=== PATIENT | female | born 1945 | race Two or more races ===

== ENCOUNTER 2017-04-26 05:43 | Inpatient (IN) | payer MEDICARE, BC ==
[~2017-04-26] VITALS: Ht 167.6 cm; Wt 54.9 kg
[2017-04-26] MEDS ORDERED: TRANEXAMIC ACID 1,500 MG in IV NS 0.9% 50 ML IV ONE (07:00)
[2017-04-26 08:00] VITALS: BP 149/67
[2017-04-26] MEDS ORDERED: DIAZ5TAB4 PO (09:19)
[2017-04-26] MEDS ORDERED: LEVO5TAB13 PO (09:19)
[2017-04-26] MEDS ORDERED: CLON0.1T PO (09:19)
[2017-04-26] MEDS ORDERED: TRAM50TA2 PO (09:19)
[2017-04-26] MEDS ORDERED: LEVO150T8 PO (09:19)
[2017-04-26] MEDS ORDERED: ANESTHESIA TRAY IN PYXIS 1 EA TRAY MC ONE (09:48)
[2017-04-26] MEDS ORDERED: [UNRECOGNIZED DRUG - CODE] PO (09:48)
[2017-04-26] MEDS ORDERED: DOCU50LI PO (09:48)
[2017-04-26] MEDS ORDERED: KETOROLAC TROMETHAMINE INJ 30 MG/ML VIAL ONE ×2 (09:49→14:30)
[2017-04-26] MEDS ORDERED: MORPHINE SULFATE INJ 4 MG/ML DISP.SYRIN ONE (09:49)
[2017-04-26] MEDS ORDERED: BUPIVACAINE 0.5 % PF 150 MG/30 ML VIAL ONE (09:49)
[2017-04-26] MEDS ORDERED: BACITRACIN 50000 UNITS/VIAL ONE (09:49)
[2017-04-26 09:51] VITALS: BP 149/67
[2017-04-26] MEDS ORDERED: oxyCODONE HCL SR 10MG TAB.SR.12H PO ONE (09:52)
[2017-04-26] MEDS ORDERED: CELECOXIB 100 MG CAPSULE PO ONE (10:00)
[2017-04-26] MEDS ORDERED: METOCLOPRAMIDE HCL 10 MG/2 ML VIAL IV ONE (10:00)
[2017-04-26] MEDS ORDERED: FENTANYL PF 100MCG/2ML AMPUL ONE ×2 (10:16→11:46)
[2017-04-26] MEDS ORDERED: ROCURONIUM BROMIDE 50 MG/5 ML ONE (10:16)
[2017-04-26] MEDS ORDERED: MIDAZOLAM HCL 2 MG/2ML VIAL ONE (10:16)
[2017-04-26] MEDS ORDERED: CLINDAMYCIN 900 MG/6 ML VIAL ONE (10:17)
[2017-04-26] MEDS ORDERED: ONDANSETRON HCL/PF 4 MG/2 ML VIAL ONE (14:03)
[2017-04-26] MEDS ORDERED: METOCLOPRAMIDE HCL 10 MG/2 ML VIAL ONE (14:24)
[2017-04-26] MEDS ORDERED: IV D5/0.45 NACL 1,000 ML IV PRN (15:00)
[2017-04-26] MEDS ORDERED: ASPIRIN 600 MG/SUPP.RECT RC ONE (15:00)
[2017-04-26] MEDS ORDERED: ZOLPIDEM TARTRATE 5 MG TABLET PO PRN (15:30)
[2017-04-26] MEDS ORDERED: LEVOFLOXACIN 500 MG /D5W 100ML 500 MG in PREMIX 1 EA IV ONE (15:30)
--- NOTE | 2017-04-26 19:30 | NUR ---
MS/RN NOTES: RECEIVED PT. IN BED A/O X 4 W/ A FRIEND AT BEDSIDE. DENIES ANY C/O CHEST PAIN OR SOB AT PRESENT. W/ IVF GOING TO LT. HAND PATENT AND INTACT W/ NO S/S OF INFECTION/INFILTRATION NOTED. W/ BRACT TO LEFT KNEE INTACT. CALL LIGHT W/ REACH. SAFETY PRECAUTION MENTIONED.
[2017-04-26 20:00] VITALS: BP 103/51
[2017-04-26] MEDS: CLINDAMYCIN 600 MG in IV D5W 50 ML IV SCH (20:00)
--- NOTE | 2017-04-26 21:03 | NUR ---
Patient was upset this am, at beginning of dayshift. She c/o that she is supposed to have IV started. OR nurse Kilo Bazan had started IV in L wrist with 20 g and then gave patient am meds. Oxycodone and preop meds was given by him with sips of water. No call was done by OR about giving am meds to patient, but the 2 OR nurse came and transferred patient via gurney after meds given. Patient returned about 1500 and this nurse received report from OR nurse stating patient has allergy to PCN, and so Ancef cannot be given. Waiting for Inpatient Pharmacy to bring meds to give to patient. Then no IV pump in room and [facility] needed to bring pump for antibiotics. Report given to Hawa FRANCIS to assume care of patient. This nurse still in hospital at 2100. IV D5 1/2 NS hung and IVPB Clindamycin and Levaquin. Addendum: 04/26/17 at 2152 by FABY FONG RN Reglan also given, but the nurse Kilo didn't sign off in [employer]
[2017-04-27] MEDS: CLINDAMYCIN 600 MG in IV D5W 50 ML IV SCH ×2 (00:43→09:17)
[2017-04-27] MEDS: ONDANSETRON HCL/PF 4 MG/2 ML VIAL IV SCH ×2 (03:28→08:59)
[2017-04-27] MEDS: KETOROLAC TROMETHAMINE INJ 30 MG/ML VIAL IV PRN ×4 (03:28→21:40)
[2017-04-27 04:00] VITALS: BP 97/48
[2017-04-27] MEDS ORDERED: MAGNESIUM HYDROXIDE 30 ML UDC PO PRN (04:00)
[2017-04-27] MEDS ORDERED: BISACODYL SUPP (10 MG) 10 MG/SUPP.RECT SUPP.RECT RC PRN (04:00)
[2017-04-27] MEDS ORDERED: ACETAMINOPHEN 650 MG/20.3 ML UDC PO PRN (04:00)
--- NOTE | 2017-04-27 06:58 | NUR ---
RN/MS NOTES: PT. IS IN BED RESTING W/ NO C/O CHEST PAIN OR SOB AT PRESENT. NO ACUTE CHANGES NOTED DURING THIS SHIFT. REPORT GIVEN TO AM NURSE FOR TAWANNA.
[2017-04-27 07:51] LABS: BASOPHILS % (AUTO) 0.1 % (0.0-2.0); EOSINOPHILS # (AUTO) 0.1 /CMM (0.0-0.7); EOSINOPHILS % (AUTO) 0.7 % (0.0-6.0); HEMATOCRIT 31 % (33-45); HEMOGLOBIN 10.5 g/dL (11.5-14.8); LYMPHOCYTES # (AUTO) 1.4 /CMM (0.8-4.8); LYMPHOCYTES % (AUTO) 10.1 % (20.0-44.0); MEAN CORPUSCULAR HEMOGLOBIN 30 PG (26.0-33.0); MEAN CORPUSCULAR HGB CONC 34 g/dl (31.0-36.0); MEAN CORPUSCULAR VOLUME 90 fL (82-100); MONOCYTES # (AUTO) 1.2 /CMM (0.1-1.30); MONOCYTES % (AUTO) 8.6 % (2.0-12.0); NEUTROPHILS # (AUTO) 11.5 /CMM (1.8-8.9); NEUTROPHILS % (AUTO) 80.5 % (43.0-81.0); PLATELET COUNT (AUTO) 221 /CMM (150-450); RDW COEFFICIENT OF VARIATION 13.7 (11.5-15.0); RED BLOOD CELL COUNT(AUTO) 3.45 MIL/uL (4.0-5.2); WHITE BLOOD COUNT (AUTO) 14.2 K/uL (4.3-11.0)
[2017-04-27 07:53] LABS: CALCIUM, SERUM 8.4 mg/dL (8.5-10.1); CARBON DIOXIDE 22 mmol/L (21-32); CHLORIDE 105 mmol/L (98-107); CREATININE 1.1 mg/dL (0.6-1.3); GLUCOSE 148 mg/dL (74-106); MAGNESIUM 1.9 mg/dL (1.8-2.4); POTASSIUM 3.9 mmol/L (3.5-5.1); SODIUM SERUM 139 mmol/L (136-145); UREA NITROGEN, BLOOD 17 mg/dL (7-18)
[2017-04-27 08:00] VITALS: BP 109/51
[2017-04-27] MEDS: ASPIRIN 325 MG TABLET PO SCH ×2 (08:58→17:59)
[2017-04-27] MEDS ORDERED: CELECOXIB 100 MG CAPSULE PO SCH (09:00)
[2017-04-27] MEDS ORDERED: Medication Not On Formulary EA (Levocetirizine Dihydrochloride 5 MG) PO PRN (13:30)
[2017-04-27] MEDS ORDERED: ONDANSETRON HCL/PF 4 MG/2 ML VIAL IV SCH (13:30)
[2017-04-27] MEDS ORDERED: diphenhydrAMINE HCL 50 MG/ML VIAL IV PRN (13:30)
[2017-04-27] MEDS ORDERED: HYDROCODONE/APAP 10/325MG 1 EA TABLET PO PRN (13:30)
[2017-04-27] MEDS ORDERED: HYDROCODONE/APAP 5/325MG 1 EACH TABLET PO PRN (13:30)
[2017-04-27] MEDS ORDERED: HYDROMORPHONE INJ 0.5 MG/0.5 ML SYRINGE IV PRN (14:00)
[2017-04-27] MEDS: CLONIDINE HCL 0.1 MG TABLET PO SCH ×2 (16:42→20:59)
[2017-04-27] MEDS: TRAMADOL HCL 50 MG TABLET PO PRN (16:45)
[2017-04-27] MEDS: LEVOCETIRIZINE 5 MG PO PRN (17:59)
--- NOTE | 2017-04-27 19:21 | NUR ---
Assumed care of patient from 0700 to 1930. Medicated for pain with Dilaudid, Toradol and Ultram. IV SL'd. Flushed and patent. VSS. Ambulated with PT x 1. Left leg in CPM for about less than 1 hr. She was medicated prior, but she refused CPM. Knee Immobilizer on while patient in bed. Castañeda drained 1000 ml. Home meds taken to inpt pharmacy. She request allergy pill- Levocetirizine. Report given to Verenice FRANCIS for overnight houseperson.
[2017-04-27 20:00] VITALS: BP 154/63
[2017-04-27] MEDS: DOCUSATE SODIUM 100 MG CAPSULE PO PRN (20:59)
--- NOTE | 2017-04-27 21:02 | NUR ---
MS1/RN BP 154/63, PATIENT IS CONCERNED AND ASKED FOR HER BP MED, CLONIDINE. CLONIDINE 0.1 MG PO WAS GIVEN ORDERED.
--- NOTE | 2017-04-27 21:54 | NUR ---
MS1/RN PATIENT ASKED FOR NAUSEA MEDICATION, NO ACTIVE ORDER NOTED. CALLED [facility], DR. LARA IS UTILITY WORKER DRIVER. LEFT MESSAGE.
[2017-04-27] MEDS: DOCUSATE SODIUM LIQ 100 MG/10 ML UDC PO SCH (22:00)
[2017-04-27] MEDS ORDERED: METHYLCELLULOSE 500 MG PO SCH (22:00)
--- NOTE | 2017-04-27 22:00 | NUR ---
MS1/RN COLACE 240 MG LIQUID NOT GIVEN MED WAS NOT AVAILABLE AT THE TIME PATIENT REQUESTED FOR HER HS MEDS. COLACE 100 MG SOFT GEL WAS GIVEN INSTEAD.
--- NOTE | 2017-04-27 22:10 | NUR ---
MS1/RN DR. LARA CALLED BACK WITH ORDERS RECEIVED. ORDERS CARRIED OUT.
--- NOTE | 2017-04-27 22:49 | NUR ---
MS1/RN PATIENT IS SLEEPING AT THIS TIME, EASILY AROUSABLE, APPEAR COMFORTABLE, NO SIGNS OF DISTRESS NOTED, CALL LIGHT IN REACH. WILL CONTINUE TO MONITOR.
[2017-04-27] MEDS: ONDANSETRON HCL/PF 4 MG/2 ML VIAL IV PRN (23:11)
--- NOTE | 2017-04-28 | NUR ---
MS1/RN PATIENT IS SLEEPING AFTER ZOFRAN IV WAS GIVEN FOR NAUSEA, PATIENT APPEARS COMFORTABLE, NO DISTRESS NOTED, WILL CONTINUE TO MONITOR.
[2017-04-28] MEDS: DIAZEPAM 5 MG TABLET PO PRN ×2 (02:26→19:28)
--- NOTE | 2017-04-28 02:34 | NUR ---
MS1/RN PATIENT IS AWAKE AND VERY ANXIOUS AND ASKING FOR HER VALIUM. VALIUM 5 MG PO WAS GIVEN ORDERED. WILL MONITOR.
[2017-04-28] MEDS: TRAMADOL HCL 50 MG TABLET PO PRN ×3 (02:50→17:36)
--- NOTE | 2017-04-28 03:51 | NUR ---
MS1/RN BP 178/70, PATIENT IS ASYMPTOMATIC, NO BP MED PRN ORDERED, CALLED [facility] LEFT MESSAGE.
--- NOTE | 2017-04-28 03:59 | NUR ---
MS1/RN JANE GUZMAN CALLED BACK AND ORDERED TO GIVE THE CLONIDINE DOSE FOR 9:00, NOW.
[2017-04-28 04:00] VITALS: BP 178/70
[2017-04-28] MEDS ORDERED: CLONIDINE HCL 0.1 MG TABLET PO SCH (04:00)
[2017-04-28] MEDS: CLONIDINE HCL 0.1 MG TABLET PO SCH ×3 (04:07→20:41)
[2017-04-28] MEDS: LEVOTHYROXINE SODIUM 75 MCG TABLET PO SCH (06:54)
[2017-04-28] MEDS: ONDANSETRON HCL/PF 4 MG/2 ML VIAL IV PRN ×2 (06:59→19:29)
[2017-04-28] MEDS: KETOROLAC TROMETHAMINE INJ 30 MG/ML VIAL IV PRN ×3 (07:06→21:43)
[2017-04-28 07:13] LABS: BASOPHILS % (AUTO) 0.2 % (0.0-2.0); EOSINOPHILS # (AUTO) 0.1 /CMM (0.0-0.7); EOSINOPHILS % (AUTO) 1.4 % (0.0-6.0); HEMATOCRIT 31 % (33-45); HEMOGLOBIN 10.3 g/dL (11.5-14.8); LYMPHOCYTES % (AUTO) 12.1 % (20.0-44.0); MEAN CORPUSCULAR HEMOGLOBIN 31 PG (26.0-33.0); MEAN CORPUSCULAR HGB CONC 34 g/dl (31.0-36.0); MEAN CORPUSCULAR VOLUME 90 fL (82-100); MONOCYTES # (AUTO) 1.2 /CMM (0.1-1.30); MONOCYTES % (AUTO) 14.7 % (2.0-12.0); NEUTROPHILS % (AUTO) 71.6 % (43.0-81.0); PLATELET COUNT (AUTO) 230 /CMM (150-450); RDW COEFFICIENT OF VARIATION 13.9 (11.5-15.0); RED BLOOD CELL COUNT(AUTO) 3.39 MIL/uL (4.0-5.2); WHITE BLOOD COUNT (AUTO) 8.4 K/uL (4.3-11.0)
[2017-04-28 07:27] LABS: CALCIUM, SERUM 8.5 mg/dL (8.5-10.1); CARBON DIOXIDE 28 mmol/L (21-32); CHLORIDE 108 mmol/L (98-107); CREATININE 0.9 mg/dL (0.6-1.3); GLUCOSE 110 mg/dL (74-106); PHOSPHORUS 3.4 mg/dL (2.5-4.9); POTASSIUM 4.1 mmol/L (3.5-5.1); SODIUM SERUM 143 mmol/L (136-145); UREA NITROGEN, BLOOD 14 mg/dL (7-18)
--- NOTE | 2017-04-28 07:33 | NUR ---
MS1/RN AWAKE, COMFORTABLE, NO DISTRESS NOTED, PATIENT REFUSED TURNING THE WHOLE SHIFT, EDUCATED ON IMPORTANCE OF TURNING, VERBALIZED UNDERSTANDING BUT STILL REFUSED. ALL NEEDS ATTENDED AT THIS TIME. ENDORSED.
[2017-04-28 07:40] LABS: THYROID STIMULATING HORMONE 0.192 uIU/mL (0.358-3.74)
[2017-04-28 08:00] VITALS: BP 161/66
--- NOTE | 2017-04-28 08:00 | NUR ---
RN NOTES RECEIVED PATIENT IN THE BED A/O X4, NO ACUTE RESPIRATORY DISTRESS, PATIENT V/S TAKEN STABLE, ENCOURAGED TO EXPRESS FEELINGS AND CONCERNS, IV LINE ON LEFT FOREARM INTACT,LEFT KNEE BRACE IMMOBILIZED ON,DRESSING INTACT, F/C DRAIN LIGHT YELLOW OUTPUT, NEEDS ATTENDED AND ANTICIPATED, CALL LIGHT WITHIN TO REACH, SAFETY PRECAUTION MAINTAINED ALL THE TIME. CONTINUED MONITORING.
[2017-04-28 08:59] LABS: IRON, SERUM 10 ug/dl (50-175); TOTAL IRON BINDING CAPACITY 210 ug/dl (250-450)
[2017-04-28] MEDS: ASPIRIN 325 MG TABLET PO SCH ×2 (09:55→17:26)
--- NOTE | 2017-04-28 10:00 | NUR ---
RN NOTES REMOVED BLOOD CATHETER PRESCRIBED OUTPUT WAS 500 ML, ENCOURAGED PATIENT INCREASE FLUID INTAKE, ASSIST PATIENT TURN AND REPOSITION, CALL LIGHT WITHIN TO REACH, CONTINUED MONITORING.
--- NOTE | 2017-04-28 10:09 | NUR ---
RN NOTES 'ADMINISTERED ULTRAM 50 MG PO PRN FOR LEFT KNEE PAIN 06/01, PER PATIENT REQUEST, V/S TAKEN BP -161/66, P-69, CALL LIGHT WITHIN TO REACH, CONTINUED MONITORING.
[2017-04-28] MEDS: VENLAFAXINE 37.5 MG TABLET PO SCH (11:43)
--- NOTE | 2017-04-28 12:38 | NUR ---
RN NOTES ADMINISTERED TORADOL 30 MG/ML IV PUSH FOR PAIN 10/01, PER PATIENT REQUEST, V/S TAKEN BP -154/75, P-70, CALL LIGHT WITHIN TO REACH, SAFETY PRECAUTION MAINTAINED ALL THE TIME.
--- NOTE | 2017-04-28 14:22 | NUR ---
RN NOTES MEDICATION WERE ADMINISTERED FOR PAIN EFFECTIVE, PATIENT RESTING, NO ACUTE DISTRESS, CALL LIGHT WITHIN TO REACH, CONTINUED MONITORING.
[2017-04-28 16:00] VITALS: BP 151/67
--- NOTE | 2017-04-28 17:36 | NUR ---
RN NOTES ADMINISTERED ULTRAM 50 MG PO PRN FOR LEFT KNEE PAIN 07/02 PER PATIENT REQUEST V/S TAKEN BP-151/67, P-65, CALL LIGHT WITHIN TO REACH, DAUGHTER NEXT TO THE BED, CONTINUED MONITORING. ENCOURAGED TO INCREASE FLUID INTAKE.
--- NOTE | 2017-04-28 18:39 | NUR ---
RN NOTES PATIENT LYING IN THE BED, V/S STABLE, NO C/O PAIN AT THIS TIME, MEDICATION WERE ADMINISTERED FOR PAIN EFFECTIVE, CALL LIGHT WITHIN TO REACH, DAUGHTER NEXT TO THE BED. CONTINUED MONITORING. ENDORSED ONCOMING NURSE FOR TAWANNA.
[2017-04-28 20:00] VITALS: BP 154/73
--- NOTE | 2017-04-28 21:00 | NUR ---
RN NOTE PATIENT COMPLAINS OF PAIN IN LEFT KNEE 10/01, RECEIVED AN ORDER FOR TORADOL 30 MG IV Q 6 HOURS PRN, CALLED [facility] SPOKE WITH WILTON, SHE WILL VERIFY WITH PHARMACIST
--- NOTE | 2017-04-28 21:15 | NUR ---
RN NOTE PATIENT WILL BE UNDER NURSE TTIO NEWMAN, PROVIDED REPORT TO HER
--- NOTE | 2017-04-28 21:28 | NUR ---
RN NOTES RECEIVED PATIENT IN THE BED A/O X4, NO ACUTE RESPIRATORY DISTRESS, IV LINE ON LEFT FOREARM INTACT,LEFT KNEE BRACE IMMOBILIZED ON,DRESSING INTACT, ABLE TO URINATE, PATIENT IS ANXIOUS, ADMINISTERED MEDICATION AND ITS EFFECTIVE, CALL LIGHT WITHIN TO REACH, SAFETY PRECAUTION MAINTAINED ALL THE TIME, ALL BELONGINGS WITHIN REACH, ENCOURAGED TO USE CALL LIGHT, SIDE RAILS UP X 2, BED ALARM ACTIVATED FOR SAFETY, WILL CONTINUE TO MONITOR PATIENT
--- NOTE | 2017-04-28 21:30 | NUR ---
MS RN NOTE RECEIVED PATIENT FROM TITO TRINIDAD. PATIENT STABLE IN BED. STATES THAT SHE IS WAITING FOR TORADOL FOR 8/10 PAIN TO KNEE. IV SITE NOTED TO BE INFILTRATED. WILL PLACE NEW IV SHORTLY.
[2017-04-28] MEDS: DOCUSATE SODIUM LIQ 100 MG/10 ML UDC PO SCH (21:43)
--- NOTE | 2017-04-28 21:45 | NUR ---
MS RN NOTE NEW IV PLACED TO LEFT FOREARM #22. PATIENT TOLERATED WELL. ADMINISTERED TORADOL 30MG IVP. PATIENT IS CURRENTLY REFUSING SCD'S. EXPLAINED ALL BENEFITS TO PATIENT. CONTINUES TO REFUSE. WILL CONTINUE TO MONITOR.
[2017-04-29] VITALS: BP 144/70
[2017-04-29 04:00] VITALS: BP 147/69
[2017-04-29] MEDS: LEVOTHYROXINE SODIUM 75 MCG TABLET PO SCH (05:12)
[2017-04-29] MEDS: CLONIDINE HCL 0.1 MG TABLET PO SCH ×3 (05:12→21:20)
--- NOTE | 2017-04-29 06:04 | NUR ---
MS RN NOTE PATIENT STABLE. ALL NEEDS MET AND ATTENDED TO. WILL ENDORSE TO DAY SHIFT FOR TAWANNA.
[2017-04-29 06:41] LABS: BASOPHILS % (AUTO) 0.2 % (0.0-2.0); EOSINOPHILS # (AUTO) 0.3 /CMM (0.0-0.7); EOSINOPHILS % (AUTO) 3.7 % (0.0-6.0); HEMATOCRIT 27 % (33-45); HEMOGLOBIN 8.9 g/dL (11.5-14.8); LYMPHOCYTES # (AUTO) 1.3 /CMM (0.8-4.8); LYMPHOCYTES % (AUTO) 16.8 % (20.0-44.0); MEAN CORPUSCULAR HEMOGLOBIN 29 PG (26.0-33.0); MEAN CORPUSCULAR HGB CONC 33 g/dl (31.0-36.0); MEAN CORPUSCULAR VOLUME 89 fL (82-100); MONOCYTES # (AUTO) 1.1 /CMM (0.1-1.30); MONOCYTES % (AUTO) 15.2 % (2.0-12.0); NEUTROPHILS # (AUTO) 4.8 /CMM (1.8-8.9); NEUTROPHILS % (AUTO) 64.1 % (43.0-81.0); PLATELET COUNT (AUTO) 185 /CMM (150-450); RDW COEFFICIENT OF VARIATION 14.2 (11.5-15.0); RED BLOOD CELL COUNT(AUTO) 3.03 MIL/uL (4.0-5.2); WHITE BLOOD COUNT (AUTO) 7.5 K/uL (4.3-11.0)
[2017-04-29 06:50] LABS: CALCIUM, SERUM 8.5 mg/dL (8.5-10.1); CARBON DIOXIDE 24 mmol/L (21-32); CHLORIDE 105 mmol/L (98-107); CREATININE 0.9 mg/dL (0.6-1.3); GLUCOSE 110 mg/dL (74-106); PHOSPHORUS 3.7 mg/dL (2.5-4.9); POTASSIUM 4.1 mmol/L (3.5-5.1); SODIUM SERUM 140 mmol/L (136-145); UREA NITROGEN, BLOOD 16 mg/dL (7-18)
[2017-04-29 07:18] LABS: EOSINOPHILS % (MANUAL) 5 % (0-4); LYMPHOCYTES % (MANUAL) 10 % (16-48); MONOCYTES % (MANUAL) 16 % (0-11.0); NEUTROPHILS % (MANUAL) 69 (42-76)
--- NOTE | 2017-04-29 07:42 | NUR ---
MS/RN OPENING NOTE PATIENT IN BED IN STABLE CONDITION. A/O X 4. NO SIGNS OF ACUTE DISTRESS. NO COMPLAIN OF PAIN OR DISCOMFORT. ALL NEEDS ATTENDED TO. CALL LIGHT WITHIN REACH. WILL CONTINUE TO MONITOR TO ENSURE SAFETY.
[2017-04-29 08:00] VITALS: BP 115/61
[2017-04-29 08:06] VITALS: BP 146/70
[2017-04-29] MEDS: ASPIRIN 325 MG TABLET PO SCH ×2 (08:49→16:54)
[2017-04-29] MEDS: VENLAFAXINE 37.5 MG TABLET PO SCH (08:49)
[2017-04-29] MEDS: KETOROLAC TROMETHAMINE INJ 30 MG/ML VIAL IV PRN ×2 (08:49→15:14)
[2017-04-29] MEDS: ONDANSETRON HCL/PF 4 MG/2 ML VIAL IV PRN ×2 (08:49→15:14)
[2017-04-29 16:00] VITALS: BP 146/54
--- NOTE | 2017-04-29 18:07 | NUR ---
MS/RN CLOSING NOTE PATIENT IN BED IN STABLE CONDITION. A/O X 3. NO SIGNS OF ACUTE DISTRESS. NO COMPLAIN OF PAIN OR DISCOMFORT. ALL NEEDS ATTENDED TO. CALL LIGHT WITHIN REACH. WILL ENDORSE TO NEXT SHIFT FOR CONTINUITY OF CARE.
--- NOTE | 2017-04-29 19:25 | NUR ---
MS/RN NOTES RECEIVED PT. LYING DOWN IN BED. AWAKE, ALERT AND ORIENTED X4. BREATHING EVEN AND UNLABORED ON ROOM AIR. NO COMPLAINTS OF SOB, RESPIRATORY DISTRESS OR PAIN NOTED AT THIS TIME. PT. WITH LEFT FOREARM 22 GAUGE IV SALINE LOCK PRESENT, PATENT AND INTACT. BED LOCKED AND IN LOWEST POSITION, SIDE RAILS UP X2, BED ALARM ON, CALL LIGHT WITHIN REACH, WILL CONTINUE TO MONITOR.
[2017-04-29 20:00] VITALS: BP 138/53
[2017-04-29] MEDS: DOCUSATE SODIUM LIQ 100 MG/10 ML UDC PO SCH (21:20)
[2017-04-30] MEDS: KETOROLAC TROMETHAMINE INJ 30 MG/ML VIAL IV PRN ×2 (02:16→11:00)
[2017-04-30] MEDS: ONDANSETRON HCL/PF 4 MG/2 ML VIAL IV PRN ×2 (02:17→11:00)
[2017-04-30] MEDS: CLONIDINE HCL 0.1 MG TABLET PO SCH ×2 (05:00→13:11)
--- NOTE | 2017-04-30 06:36 | NUR ---
MS/RN NOTES PT. IS LYING IN BED RESTING. BREATHING EVEN AND UNLABORED ON ROOM AIR. NO COMPLAINTS OF SOB, RESPIRATORY DISTRESS OR PAIN NOTED AT THIS TIME. PT. WITH LEFT FOREARM 22 GAUGE IV SALINE LOCK PRESENT, PATENT AND INTACT. ALL PT. NEEDS MET. ALL DUE MEDICATIONS GIVEN. BED LOCKED AND IN LOWEST POSITION, SIDE RAILS UP X2, BED ALARM ON, CALL LIGHT WITHIN REACH, WILL ENDORSE TO DAYSHIFT NURSE FOR CONTINUITY OF CARE.
--- NOTE | 2017-04-30 07:30 | NUR ---
RN MED-SURG NOTE: RECEIVED PATIENT IN BED, AWAKE, AND ABLE TO MAKE NEEDS KNOWN. RESPIRATION EVEN AND UNLABORED. SATURATING WELL 96% IN RA. NOTED CALM AND LYING QUIETLY IN BED. (L) LEG WAS NOTED WITH REGIS WRAP AND IMMOBILIZER IN PLACED. DRESSING INTACT AND CLEAN. DENIED PAIN AT THIS TIME. CALL LIGHT WITHIN REACH. NEEDS ANTICIPATED. BED ALARM AND LOCKED AT ALL TIMES.
[2017-04-30 08:00] VITALS: BP 135/66
[2017-04-30] MEDS: LEVOTHYROXINE SODIUM 75 MCG TABLET PO SCH (08:29)
[2017-04-30] MEDS: VENLAFAXINE 37.5 MG TABLET PO SCH (08:29)
[2017-04-30] MEDS: ASPIRIN 325 MG TABLET PO SCH ×2 (08:30→16:32)
[2017-04-30 13:11] VITALS: BP 156/63
[2017-04-30] MEDS: DIAZEPAM 5 MG TABLET PO PRN (14:36)
[2017-04-30] MEDS: LEVOCETIRIZINE 5 MG PO PRN (15:07)
[2017-04-30] MEDS ORDERED: DOCU-141 PO (15:45)
[2017-04-30] MEDS ORDERED: BISA10SU8 RC (15:45)
[2017-04-30] MEDS ORDERED: ASPI-992 PO (15:45)
--- NOTE | 2017-04-30 16:30 | NUR ---
TITO MED-SURG NOTE: CALLED AND SPOKE WITH TITO IBARRA FROM [facility]. INFORMED HIM OF THE PATIENT'S PERTINENT INFORMATION, INCLUDING THE (L) LEG WITH REGIS WRAP AND IMMOBILIZER WAS IN PLACED. HE WAS ALSO INFORMED OF THE PATIENT'S DISCHARGE INSTRUCTIONS INCLUDING THE FOLLOW-UP WITH ORTHOPEDIC SURGEON INCLUDING HER DRESSING CHANGE. HE WAS ALSO AWARE THAT PATIENT IS GOING TO BE DISCHARGE WITH HER OWN MEDICATIONS SEALED IN A PLASTIC BAG WITH LABELS. TITO IBARRA MADE AWARE THAT ETA WILL BE @1700.
--- NOTE | 2017-04-30 16:36 | NUR ---
RN MED-SURG NOTE: PATIENT WAS GIVEN DISCHARGE INSTRUCTIONS REGARDING HER FOLLOW-UP WITH HER PCP, CONTINUE W/ PT AND FOLLOW-UP APPOINTMENT WITH ORTHOPEDIC SURGEON. PATIENT WAS GIVEN INSTRUCTIONS RE: INFLUENZA/PNA VACCINE, BUT SHE STRONGLY REFUSED IT. (L) FA IV LINE WAS REMOVED AND SECURED WITH GAUZE AND TAPE. TOLERATED IT WELL. PATIENT WAS AWARE THAT HER HOME MEDICATIONS WILL BE GIVEN ONCE SHE GETS PICKED UP BY THE shipmaster. PATIENT VERBALIZED A FULL UNDERSTANDING OF ALL HER DISCHARGE INSTRUCTIONS. SIGNED HER BELONGING LIST AND DISCHARGE INSTRUCTIONS. COPIES WERE PLACED IN A FOLDER AND WILL BE GIVEN TO THE shipmaster UPON DISCHARGE.
[2017-04-30] MEDS: DOCUSATE SODIUM 100 MG CAPSULE PO PRN (17:42)
--- NOTE | 2017-04-30 18:05 | NUR ---
RN MED-SURGE NOTE: PATIENT WAS PICKED UP BY 2 traffic safety administrator OF [facility] TO [facility]. HANDED THEM THE FOLDER W/ PATIENT'S INFORMATION. PERTINENT INFORMATION WAS GIVEN TO THE traffic safety administrator. REPORT WAS GIVEN TO TITO IBARRA FOR CONTINUITY OF CARE. PT ON STABLE CONDITION. RESPIRATION EVEN AND UNLABORED. DENIED PAIN. ABLE TO AMBULATE TO THE [facility] WITH ASSISTANCE. RELEASED WITH HER ALL BELONGINGS. (L) LEG IMMOBILIZER REMAINED IN PLACE. PATIENT WAS THANKFUL UPON DISCHARGE.
== END 2017-04-30 18:05 | DRG 470 ==
LOC: DS 05:43 → MEDSG1 05:45
PROVIDERS: ADMIT Orthopaedic Surgery; ATTEND Orthopaedic Surgery
PROC: 0SRD0J9 Replacement of Left Knee Joint with Synthetic Substitute, Cemented, Open Approach (ICD-10-PCS; principal; 2017-04-26 10:25)
DX: M17.12 Unilateral primary osteoarthritis, left knee (principal); F13.20 Sedative, hypnotic or anxiolytic dependence, uncomplicated; D63.8 Anemia in other chronic diseases classified elsewhere; E03.9 Hypothyroidism, unspecified; E78.5 Hyperlipidemia, unspecified; I10 Essential (primary) hypertension; F41.9 Anxiety disorder, unspecified; K58.9 Irritable bowel syndrome, unspecified; Z96.651 Presence of right artificial knee joint; Z96.643 Presence of artificial hip joint, bilateral; Z98.890 Other specified postprocedural states; Z90.49 Acquired absence of other specified parts of digestive tract
CPT/HCPCS: 36415; 73560-TC; 80048-TC; 82746; 83540-TC; 83735-TC; 84100-TC; 84443-TC; 85025-TC; 87081-TC; 88305-TC; 88311-TC; 97110-TC; 97116-TC; 97530-TC; 97760-TC; A4216; J1200; J1885; J1956; J2250; J2270; J2405; J2765; J3010; J3490; J7060; J7120; Z7610

== ENCOUNTER 2018-05-10 10:06 | Inpatient (IN) | payer BC, MEDICARE, OTHER ==
[~2018-05-10] VITALS: Ht 160 cm; Wt 54.4 kg
[2018-05-10] VITALS (20 sets, daily range): BP systolic 82–152; BP diastolic 51–88
[~2018-05-10 10:06] MED LIST: ASPI-992 PO; BISA10SU8 RC; CLON0.1T PO; DIAZ5TAB4 PO; DOCU-141 PO; DOCU50LI PO; LEVO150T8 PO; LEVO5TAB13 PO; TRAM50TA2 PO; [UNRECOGNIZED DRUG - CODE] PO
--- NOTE | 2018-05-10 10:18 | NUR ---
PT C/O N/V/D SINCE LAST NIGHT, PT IS AAOX4, NOT IN RESPIRATORY DISTRESS, HOOKED TO MONITOR, NOTED PULSE RATE ELEVATION 130, KEPT RESTED AND COMFORTABLE. WILL CONTINUE TO MONITOR.
--- NOTE | 2018-05-10 10:27 | NUR ---
PT LABS DRAWNED AND SENT TO LAB.
--- NOTE | 2018-05-10 10:40 | NUR ---
PT SEEN AND EXAMINED BY DR. DODD.
[2018-05-10] MEDS ORDERED: ONDANSETRON HCL/PF 4 MG/2 ML VIAL ONE ×2 (10:46→11:28)
[2018-05-10 10:50] LABS: BASOPHILS # (AUTO) 0.1 /CMM (0.0-0.2); BASOPHILS % (AUTO) 0.2 % (0.0-2.0); HEMATOCRIT 48 % (33-45); HEMOGLOBIN 15.4 g/dL (11.5-14.8); LYMPHOCYTES # (AUTO) 0.8 /CMM (0.8-4.8); LYMPHOCYTES % (AUTO) 3.7 % (20.0-44.0); MEAN CORPUSCULAR HGB CONC 32 g/dl (31.0-36.0); MEAN CORPUSCULAR VOLUME 89 fL (82-100); MONOCYTES # (AUTO) 1.5 /CMM (0.1-1.30); MONOCYTES % (AUTO) 6.5 % (2.0-12.0); NEUTROPHILS # (AUTO) 19.9 /CMM (1.8-8.9); NEUTROPHILS % (AUTO) 89.6 % (43.0-81.0); PLATELET COUNT (AUTO) 398 /CMM (150-450); RED BLOOD CELL COUNT(AUTO) 5.35 MIL/uL (4.0-5.2); WHITE BLOOD COUNT (AUTO) 22.3 K/uL (4.3-11.0)
[2018-05-10] MEDS ORDERED: ONDANSETRON HCL/PF 4 MG/2 ML VIAL IVP ONE ×2 (11:00→12:00)
[2018-05-10] MEDS ORDERED: IV NS 0.9% 1,000 ML BAG IV ONE ×3 (11:00→13:30)
[2018-05-10 11:04] LABS: ALANINE AMINOTRANSFERASE 18 U/L (12-78); ALBUMIN 4.4 g/dL (3.4-5.0); ALKALINE PHOSPHATASE 127 U/L (46-116); ASPARTATE AMINOTRANSFERASE 27 U/L (15-37); BILIRUBIN,DIRECT 0.1 mg/dL (0.0-0.2); BILIRUBIN,TOTAL 0.7 mg/dL (0.2-1.0); CALCIUM, SERUM 10.3 mg/dL (8.5-10.1); CARBON DIOXIDE 23 mmol/L (21-32); CHLORIDE 105 mmol/L (98-107); GLUCOSE 208 mg/dL (74-106); LIPASE 41 U/L (73-393); SODIUM SERUM 142 mmol/L (136-145); TOTAL PROTEIN, SERUM 8.5 g/dL (6.4-8.2); UREA NITROGEN, BLOOD 19 mg/dL (7-18)
--- NOTE | 2018-05-10 11:06 | NUR ---
PT IS WHEELED TO CT SCAN VIA [facility].
[2018-05-10 12:03] LABS: APPEARANCE,URINE Slightly Cloudy (CLEAR); BILIRUBIN,URINE Negative (NEGATIVE); BLOOD, URINE Large Ery/uL (NEGATIVE); COLOR,URINE Yellow (YELLOW); KETONES,URINE 40 (NEGATIVE); LEUKOCYTE ESTERASE ,URINE Negative (NEGATIVE); NITRITE, URINE Negative (NEGATIVE); PH,URINE 5.5 (5.0-8.0); PROTEIN,URINE >=300 mg/dl (NEGATIVE); UGLUCOSE 500 MG/DL mg/dL (NEGATIVE); UROBILINOGEN,URINE 0.2 EU/dL (0.2)
[2018-05-10] MEDS ORDERED: METOCLOPRAMIDE HCL 10 MG/2 ML VIAL ONE (12:12)
[2018-05-10] MEDS ORDERED: BISA10SU8 RC (12:14)
[2018-05-10] MEDS ORDERED: ASPI-1169 PO (12:14)
[2018-05-10] MEDS ORDERED: DOCU-141 PO (12:14)
[2018-05-10] MEDS ORDERED: GABA-534 PO (12:15)
[2018-05-10 12:16] LABS: BACTERIA,URINE Few /HPF (None Seen); SQUAMOUS EPITHELIAL CELL,UR Few /HPF (None Seen); WBC,URINE 0-2 /HPF (0-3)
[2018-05-10] MEDS ORDERED: METOCLOPRAMIDE HCL 10 MG/2 ML VIAL IV ONE (12:30)
--- NOTE | 2018-05-10 12:38 | NUR ---
CALLED RT TO DO BLOOD GAS
--- NOTE | 2018-05-10 12:45 | NUR ---
CLINICALLS SENT TO THE FRONT
--- NOTE | 2018-05-10 12:48 | NUR ---
CALLED FOR ICU BED
[2018-05-10 13:05] LABS: ABG PCO2 46.3 mmHg (35.0-45.0); ABG PH 7.064 (7.350-7.450); ABG PO2 49.5 mmHg (75.0-100.0); AaDO2 472.3 mmHg; COHb 1.3 % (0.5-1.5); MetHb 0.2 % (0.0-1.5); SITE, ABG Right Radial; VENT MODE, BG NRB
--- NOTE | 2018-05-10 13:10 | NUR ---
RT AT BEDSIDE FOR ABG.
[2018-05-10] MEDS ORDERED: LEVOFLOXACIN 750 MG /D5W 150ML 150 ML IV ONE ×2 (13:12→13:30)
--- NOTE | 2018-05-10 13:22 | NUR ---
CALLED RT FOR MECH VENT SET UP AT BEDSIDE.
[2018-05-10] MEDS: SUCCINYLCHOLINE CHLORIDE 20 MG/ML VIAL IV ONE ×2 (13:25→13:46)
--- NOTE | 2018-05-10 13:25 | NUR ---
INTUBATION SET UP AT BEDSIDE, DR. DODD AWARE, ETOMIDATE 20MG AND SUCCINYLCHOLINE 100MG IVP GIVEN VERBAL ORDERED BY DR. DODD.
--- NOTE | 2018-05-10 13:26 | NUR ---
INTUBATION INITIATED, RT AT BEDSIDE, ET SIZE 7 AND 22 AT THE LIP,
[2018-05-10] MEDS ORDERED: ETOMIDATE 2 MG/ML VIAL IV ONE ×2 (13:30→18:55)
[2018-05-10] MEDS ORDERED: VANCOMYCIN 1 GM in IV D5W 250 ML IV ONE (13:30)
[2018-05-10] MEDS ORDERED: PROPOFOL 100 ML IV ONE (13:32)
[2018-05-10] MEDS ORDERED: PROPOFOL 100 ML ONE (13:33)
--- NOTE | 2018-05-10 13:40 | NUR ---
PROPOFOL STARTED AT 5MCG/HR DR. DODD AWARE AND TITRATE TO EFFECT.
--- NOTE | 2018-05-10 13:42 | NUR ---
GOT BED 256
--- NOTE | 2018-05-10 13:50 | NUR ---
RT NOTE PT INTUBATED PER MD ORDER. 7.0 ETT 23 CM AT LIP. CUFF INFLATED. ETT SECURE. VENTILATOR SETTINGS FOLLOW AC 16 450 100% +5. ALARMS SET PER PROTOCOL AND AUDIBLE. VENT PLUGGED IN TO RED OUTLET. AMBU BAG AT BED SIDE. NO DISTRESS NOTED AT MOMENT. Addendum: 05/10/18 at 1352 by PATRICIA DODD RT Amended: Links added.
--- NOTE | 2018-05-10 14:00 | NUR ---
PT IS WHEELED TO CT SCAN [facility]IA [facility] FOR CTA.
[2018-05-10] MEDS ORDERED: IV NS 0.9% 250 ML IV ONE (14:24)
[2018-05-10] MEDS ORDERED: CT SWABBABLE VALVE TRANS SET 1 EA INFUS.SET MC ONE (14:24)
[2018-05-10] MEDS ORDERED: IOHEXOL-350 100 ML VIAL IV ONE (14:24)
--- NOTE | 2018-05-10 14:46 | NUR ---
REPORT GIVEN TO TITO ARAUJO FOR TAWANNA, ANTIBIOTIC AND PROPOFOL STILL INFUSING.
--- NOTE | 2018-05-10 15:05 | NUR ---
AT BEDSIDE FOR EVAL.
[2018-05-10] MEDS: IV NS 0.9% 1,000 ML IV PRN ×2 (15:57→21:25)
[2018-05-10] MEDS ORDERED: HYDROCODONE/APAP 5/325MG 1 EACH TABLET PO PRN (16:00)
[2018-05-10] MEDS ORDERED: ONDANSETRON HCL/PF 4 MG/2 ML VIAL IVP PRN (16:00)
[2018-05-10] MEDS ORDERED: ZOLPIDEM TARTRATE 5 MG TABLET PO PRN (16:00)
[2018-05-10] MEDS ORDERED: MAG HYDROX/AL HYDROX/SIMETH 30 ML UDC PO PRN (16:00)
[2018-05-10] MEDS ORDERED: MAGNESIUM HYDROXIDE 30 ML UDC PO PRN (16:00)
[2018-05-10] MEDS ORDERED: ENOXAPARIN SODIUM 40 MG/0.4 ML DISP.SYRIN SQ SCH (16:00)
[2018-05-10] MEDS ORDERED: ACETAMINOPHEN 325 MG TABLET PO PRN (16:00)
[2018-05-10] MEDS ORDERED: Z GUARD REMEDY 2 OZ OINT TP PRN (16:00)
[2018-05-10] MEDS ORDERED: FEE PK DOSING 1 MIN EA MC ONE (16:11)
[2018-05-10 16:12] LABS: ABG BASE EXCESS -14.8 mmol/L; ABG OXYGEN SATURATION 91.6 % (92.0-98.5); ABG PCO2 46.9 mmHg (35.0-45.0); ABG PO2 76.9 mmHg (75.0-100.0); AaDO2 589.2 mmHg; MetHb 0.7 % (0.0-1.5); SITE, ABG Right Radial; VENT MODE, BG AC 16 450 100% +5
[2018-05-10] MEDS: PROPOFOL 100 ML IV PRN (16:24)
[2018-05-10] MEDS ORDERED: Sodium Acetate 100 MEQ in IV D5W 1,000 ML IV PRN (16:30)
[2018-05-10] MEDS ORDERED: SODIUM BICARBONATE SYR 50 MEQ/50 ML DISP.SYRIN IV ONE (16:30)
--- NOTE | 2018-05-10 16:35 | NUR ---
RN NOTE 1525: Admitted 72 y/o female patient from ER, intubated, on Diprivan for sedation, @ 7mcg. Will titrate as ordered. Skin assessment done, no wounds noted. Noted with thin pinkish secretions from ETT. Placed on CERTIFIED DIALYSIS TECHNICIAN restraints for safety, noted with both arms movements. Positioned for comfort. ST 130's. Temp 95.8. 1600: Applied OGT. 1635: Spoke with Dr. Lemus and made aware re: the repeat ABG, with order to give 2amps Bicarb push, Bicarb drip with 2 amps @ 75 but pharmacy changed to Na acetate. MD also ordered Cefepime initially but changed to Aztreonam secondary to PNC allergy. Will repeat ABG @ 2029(after 4hours per MD)
[2018-05-10] MEDS ORDERED: AZTREONAM 1 G VIAL IM SCH (17:00)
--- NOTE | 2018-05-10 17:22 | NUR ---
RN NOTE 1700: EKG sent to Dr. Helms per Dr. Costa, still ST 120's. Collected sputum specimen from ETT suction. 1720: RP, Javier called, updated re: the patient.
[2018-05-10] MEDS: AZTREONAM 1 G in IV NS 0.9% 100 ML IV SCH (18:14)
--- NOTE | 2018-05-10 18:30 | NUR ---
RN NOTE S/E by Ayo CROW, SKEIN YARN DYER HELPER new order at this time. Awaiting cultures. Patient remained on Diprivan @ 30mcg, Still ST 120-130's, MDs aware. Kept clean, warm and dry. Lactic acid 5.5 from 8.0, Trop 3.205 from 4.103> Will endorse to next shift.
[2018-05-10] MEDS ORDERED: FEE EMEERGENCY 1 MIN EA MC ONE (18:55)
[2018-05-10] MEDS ORDERED: SUCCINYLCHOLINE CHLORIDE 20 MG/ML VIAL IV ONE (18:55)
--- NOTE | 2018-05-10 19:00 | NUR ---
AUTOCLAVE OPERATOR NOTES RECEIVED PATIENT ORALLY INTUBATED TO THE VENTILATOR ON AC MODE,SEDATED WITH PROPOFOL DRIP (WILL TITRATE TO SAS 0F 3).NOT IN NAY ACUTE DISTRESS BUT STILL SLIGHTLY TACHYPNEIC (RR=30).OGT CLAMPED,PLACEMENT CHECKED (+).ALSO WITH SODIUM ACETATE DRIP @ 75 ML/HR. 2000 ABG DONE BY RT.
[2018-05-10 20:08] LABS: ABG BASE EXCESS -4.7 mmol/L; ABG OXYGEN SATURATION 98.7 % (92.0-98.5); ABG PCO2 30.9 mmHg (35.0-45.0); ABG PO2 167.1 mmHg (75.0-100.0); COHb 0.8 % (0.5-1.5); MetHb 0.3 % (0.0-1.5); O2Hb 97.6 % (94.0-97.0); SITE, ABG Right Radial
--- NOTE | 2018-05-10 20:15 | NUR ---
REGISTERED VETERINARY TECHNICIAN NOTES ABG RESULTS RELAYED TO .PH=7.40,CO2=30.9,HU8=948,HCO3=18.7,SAT=98.7.ORDERED TO TITRATE DOWN FIO2 TO KEEP SATURATION @ 94%,MAY GO DOWN NOW TO 50 %.ALSO MAY DISCONTINUE SODIUM ACETATE DRIP.
--- NOTE | 2018-05-10 23:00 | NUR ---
REAL ESTATE AGENT/BROKER NOTES 2200 BP=84/63, REPEATED STILL IN THE 80'S SYSTOLIC .PROPOFOL DRIP TITRATED DOWN TO 25 MCG/KG/MIN TROPONINE=4.78 ,INFORMATION SYSTEMS TECHNICIAN GRIS Diaz WAS MADE AWARE.
[2018-05-11] VITALS (93 sets, daily range): BP systolic 78–144; BP diastolic 43–98
[2018-05-11] MEDS ORDERED: IV NS 0.9% 1,000 ML IV ONE
--- NOTE | 2018-05-11 | NUR ---
VICE PRESIDENT INTEGRATED NOTES ERIKA CONDUCTOR SYMPHONIC ORCHESTRA AT BEDSIDE,READ 12 LEAD EKG.BP IN THE LOW 80'S ,CONDUCTOR SYMPHONIC ORCHESTRA GRIS AWARE ORDERED NSS BOLUS 1 LITER ,IF DOES NOT RESPOND TO FLUIDS ,HE ORDERED MAY START NEOSYNEPHRINE DRIP 0200 BP STILL LOW ,NEOSYNEPHRINE DRIP STARTED.
[2018-05-11] MEDS: PROPOFOL 100 ML IV PRN ×3 (00:14→20:15)
[2018-05-11] MEDS ORDERED: PHENYLEPHRINE 10 MG/ML VIAL ONE (01:34)
[2018-05-11] MEDS: PHENYLEPHRINE 40 MG in IV D5W 250 ML IV PRN ×2 (01:39→08:56)
[2018-05-11] MEDS: AZTREONAM 1 G in IV NS 0.9% 100 ML IV SCH ×3 (02:09→17:58)
--- NOTE | 2018-05-11 04:00 | NUR ---
CONSULTING GROUP ANALYST NOTES BP MORE STABLE AT 50 CG OF NEOSYNEPHRINE,WILL CONTINUE TO TITRATE WITH MAP=65.OCCASIONALLY PATIENT BLINKS AND SLIGHTLY OPENS EYES TO PAIN.STILL TACHYCARDIC BUT LESSER IN THE 120'S,STILL SLIGHTLY TACHYPNEIC .
[2018-05-11] MEDS: ENOXAPARIN SODIUM 60 MG/0.6 ML DISP.SYRIN SQ SCH ×2 (04:35→16:47)
[2018-05-11 04:48] LABS: BASOPHILS % (AUTO) 0.2 % (0.0-2.0); HEMATOCRIT 46 % (33-45); HEMOGLOBIN 14.9 g/dL (11.5-14.8); LYMPHOCYTES # (AUTO) 1.2 /CMM (0.8-4.8); LYMPHOCYTES % (AUTO) 6.1 % (20.0-44.0); MEAN CORPUSCULAR HGB CONC 33 g/dl (31.0-36.0); MEAN CORPUSCULAR VOLUME 89 fL (82-100); MONOCYTES # (AUTO) 1.2 /CMM (0.1-1.30); NEUTROPHILS % (AUTO) 87.7 % (43.0-81.0); PLATELET COUNT (AUTO) 254 /CMM (150-450); RED BLOOD CELL COUNT(AUTO) 5.15 MIL/uL (4.0-5.2); WHITE BLOOD COUNT (AUTO) 19.4 K/uL (4.3-11.0)
[2018-05-11 05:05] LABS: ALANINE AMINOTRANSFERASE 27 U/L (12-78); ALBUMIN 2.5 g/dL (3.4-5.0); ALKALINE PHOSPHATASE 130 U/L (46-116); ASPARTATE AMINOTRANSFERASE 53 U/L (15-37); BILIRUBIN,TOTAL 0.4 mg/dL (0.2-1.0); CALCIUM, SERUM 8.3 mg/dL (8.5-10.1); CARBON DIOXIDE 21 mmol/L (21-32); CHLORIDE 116 mmol/L (98-107); CREATININE 1.2 mg/dL (0.6-1.3); GLUCOSE 114 mg/dL (74-106); MAGNESIUM 1.6 mg/dL (1.8-2.4); PHOSPHORUS 2.5 mg/dL (2.5-4.9); POTASSIUM 4.6 mmol/L (3.5-5.1); SODIUM SERUM 148 mmol/L (136-145); TOTAL PROTEIN, SERUM 5.4 g/dL (6.4-8.2); UREA NITROGEN, BLOOD 22 mg/dL (7-18)
[2018-05-11 05:07] LABS: CHOLESTEROL 105 mg/dL (<200); HDL CHOLESTEROL 56 mg/dL (40-60); LDL 38 mg/dL (0-99); TRIGLYCERIDES 109 mg/dL (30-150)
--- NOTE | 2018-05-11 07:00 | NUR ---
SENIOR SOFTWARE PROJECT MANAGER NOTES STATUS UNCHANGED ,STILL ON NEOSYNEPHINE DRIP FOR BP SUPPORT,REMAINS SEDATED.REPORT GIVENB TO MOIRA FRANCIS
--- NOTE | 2018-05-11 07:30 | NUR ---
RECEIVED PATIENT VENTILATED WITH ETT PER NOTATION 7. TOLERATING WELL. NO SOB, DIFFICULTY BREATHING AND NO NOTED DISTRESS. IV SITES C/D/I/P WITH IVF AND SEPIDEH AND DIPIRVAN PER ORDER; SEE SPREADSHEET. OGT IN PLACE CLAMPED. BLOOD IN PLACE DRAINING TO GRAVITY MACEY CARE COMPLETED. SKIN, SAFETY, ASPIRATION PRECAUTIONS IN PLACE AND WILL MONITOR.
[2018-05-11] MEDS: Magnesium 1GM/D5W 100ML PREMIX 100 ML IV SCH ×2 (07:57→08:55)
--- NOTE | 2018-05-11 08:00 | NUR ---
PATIENT NOTED WITH TEMP 101.2. ROOM COOLED AND ICE PACKS APPLIED. TYLENOL GIVEN. WILL MONITOR
[2018-05-11] MEDS: HYDROCORTISONE SOD SUCCINATE 100 MG/2 ML VIAL IV SCH ×3 (08:14→16:44)
[2018-05-11] MEDS: ASPIRIN 81 MG TAB.CHEW PO SCH (08:14)
[2018-05-11] MEDS: PANTOPRAZOLE 40 MG VIAL IV SCH (08:14)
[2018-05-11 08:15] LABS: BAND % (MANUAL) 23 % (0.0-5.0); LYMPHOCYTES % (MANUAL) 5 % (16-48); METAMYELOCYTES % 1 % (0-0); MONOCYTES % (MANUAL) 8 % (0-11.0); NEUTROPHILS % (MANUAL) 63 (42-76)
[2018-05-11 08:23] LABS: ABG BASE EXCESS -5.8 mmol/L; ABG OXYGEN SATURATION 93.7 % (92.0-98.5); ABG PCO2 28.9 mmHg (35.0-45.0); ABG PH 7.402 (7.350-7.450); ABG PO2 67.2 mmHg (75.0-100.0); AaDO2 184.8 mmHg; COHb 0.6 % (0.5-1.5); MetHb 0.5 % (0.0-1.5); O2Hb 92.7 % (94.0-97.0); PEEP,BG 5 cm H2O; SITE, ABG Right Radial
--- NOTE | 2018-05-11 08:28 | NUR ---
DR GUTIÉRREZ AWARE OF UPDATED TROPONIN. NO NEW ORDERS
--- NOTE | 2018-05-11 08:59 | NUR ---
DEICER KIT ASSEMBLER AT BEDSIDE
[2018-05-11] MEDS: VANCOMYCIN 1 GM in IV D5W 250 ML IV SCH (09:28)
[2018-05-11] MEDS: IV NS 0.9% 1,000 ML IV PRN (10:38)
--- NOTE | 2018-05-11 10:54 | NUR ---
per janna solomon to order motrin po/ogt for fever 600mg q6h prn
[2018-05-11] MEDS ORDERED: IBUPROFEN 600 MG TABLET PO PRN (11:00)
[2018-05-11] MEDS: FLUDROCORTISONE 0.1 MG TABLET NG SCH ×2 (11:54→17:03)
--- NOTE | 2018-05-11 15:56 | NUR ---
pt doesnt appear to weigh 93 lbs.. changed beds out and updated weight 135lbs. notified pharmacy and will update diprivan order.
[2018-05-11] MEDS: Z GUARD REMEDY 2 OZ OINT TP PRN (16:44)
[2018-05-11] MEDS: LACTOBACILLUS RHAMNOSUS GG 1 EACH CAP.SPRINK PO SCH (16:44)
[2018-05-11 17:28] LABS: APPEARANCE,URINE CLEAR (CLEAR); BILIRUBIN,URINE NEGATIVE (NEGATIVE); BLOOD, URINE NEGATIVE Ery/uL (NEGATIVE); COLOR,URINE DARK YELLO (YELLOW); KETONES,URINE TRACE (NEGATIVE); LEUKOCYTE ESTERASE ,URINE NEGATIVE (NEGATIVE); NITRITE, URINE NEGATIVE (NEGATIVE); PH,URINE 5.5 (5.0-8.0); PROTEIN,URINE NEGATIVE (NEGATIVE); UGLUCOSE NEGATIVE (NEGATIVE); UROBILINOGEN,URINE 0.2 EU/dL (0.2)
[2018-05-11 18:04] LABS: BACTERIA,URINE None seen /HPF (None Seen); RBC,URINE 0-2 /HPF (0-2); SQUAMOUS EPITHELIAL CELL,UR 0-2 /HPF (None Seen); WBC,URINE 0-2 /HPF (0-3)
--- NOTE | 2018-05-11 19:30 | NUR ---
BLADE GRINDER NOTE PT RECEIVED INTUBATED AND SEDATED. ON MECH VENT WITH SETTINGS WELL TOLERATED AND SATURATING WELL. HOB ELEVATED AND ON ASPIRATION PRECAUTIONS. BREATHING UNLABORED. OG TUBE IN PLACE AND FLUSHING WELL WITHOUT RESIDUALS. MISHEL PICC LINE WITH DIP @ 20MCG/MIN, NS @75ML/HR. BLOOD CATHETER IN PLACE AND DRAINING BY GRAVITY. WILL CONTINUE TO MONITOR.
--- NOTE | 2018-05-11 20:30 | NUR ---
CONSULTING SOLUTION MANAGER NOTE RT AT BEDSIDE AND DECREASED FIO2 FROM 45 TO 30%. TOLERATING WELL AND SATURATING 98%.
[2018-05-12] VITALS (74 sets, daily range): BP systolic 119–172; BP diastolic 65–103
[2018-05-12] MEDS: FLUDROCORTISONE 0.1 MG TABLET NG SCH ×2 (00:01→05:41)
[2018-05-12] MEDS: IV NS 0.9% 1,000 ML IV PRN ×2 (00:21→15:10)
[2018-05-12] MEDS: AZTREONAM 1 G in IV NS 0.9% 100 ML IV SCH ×3 (02:32→17:50)
[2018-05-12 05:01] LABS: BASOPHILS % (AUTO) 0.1 % (0.0-2.0); HEMATOCRIT 33 % (33-45); LYMPHOCYTES # (AUTO) 0.6 /CMM (0.8-4.8); LYMPHOCYTES % (AUTO) 4.7 % (20.0-44.0); MEAN CORPUSCULAR HGB CONC 34 g/dl (31.0-36.0); MEAN CORPUSCULAR VOLUME 88 fL (82-100); MONOCYTES % (AUTO) 7.3 % (2.0-12.0); NEUTROPHILS # (AUTO) 11.7 /CMM (1.8-8.9); NEUTROPHILS % (AUTO) 87.9 % (43.0-81.0); PLATELET COUNT (AUTO) 174 /CMM (150-450); RED BLOOD CELL COUNT(AUTO) 3.74 MIL/uL (4.0-5.2); WHITE BLOOD COUNT (AUTO) 13.3 K/uL (4.3-11.0)
[2018-05-12 05:18] LABS: ALANINE AMINOTRANSFERASE 16 U/L (12-78); ALBUMIN 1.6 g/dL (3.4-5.0); ALKALINE PHOSPHATASE 149 U/L (46-116); ASPARTATE AMINOTRANSFERASE 21 U/L (15-37); BILIRUBIN,TOTAL 0.4 mg/dL (0.2-1.0); CALCIUM, SERUM 6.6 mg/dL (8.5-10.1); CARBON DIOXIDE 17 mmol/L (21-32); CHLORIDE 118 mmol/L (98-107); CREATININE 0.8 mg/dL (0.6-1.3); GLUCOSE 114 mg/dL (74-106); MAGNESIUM 1.9 mg/dL (1.8-2.4); PHOSPHORUS 2.2 mg/dL (2.5-4.9); SODIUM SERUM 149 mmol/L (136-145); UREA NITROGEN, BLOOD 24 mg/dL (7-18)
[2018-05-12] MEDS: ENOXAPARIN SODIUM 60 MG/0.6 ML DISP.SYRIN SQ SCH (05:42)
[2018-05-12] MEDS: PROPOFOL 100 ML IV PRN ×2 (07:05→17:49)
--- NOTE | 2018-05-12 07:05 | NUR ---
RN NTOES RECEIVED PT ON BED, INTUBATED, SEDATED, TOLERATING VENT SETTING WELL, O2 SAT 98% NO DISTRESS NOTED, R UPPER ARM PICC LINE SITE CLEAN,DRY AND INTACT, DIPRIVAN AT 20MCG/KG/MIN AND NS AT 75CC/HR RUNNING , OGT IN PLACE CLAMPED. BLOOD IN PLACE DRAINING TO GRAVITY, SR UP x3, CALL LIGHT WITHIN EASY REACH, BED LOCKED AND IN LOWEST POSITION, ASPIRATION PRECAUTIONS IN PLACE , CONTINUE TO MONITOR .
--- NOTE | 2018-05-12 07:37 | NUR ---
PERFORMANCE IMPROVEMENT COORDINATOR NOTE PT REMAINED STABLE DURING SHIFT. NO ACUTE DISTRESS NOTED. VENT SETTINGS WELL TOLERATED. SUCTIONED NEEDED. REMAINS SEDATED. ALL SAFETY MEASURES IN PLACE. BILATERAL SOFT WRIST RESTRAINTS IN PLACE. WILL ENDORSE TO NEXT SHIFT FOR CONTINUITY OF CARE.
[2018-05-12] MEDS ORDERED: POTASSIUM PHOSPHATE MM 15 MMOL in IV D5W 250 ML IV SCH (08:00)
[2018-05-12] MEDS ORDERED: POTASSIUM CHLORIDE 20 MEQ POWDER PACKET NG SCH (08:00)
[2018-05-12] MEDS: LACTOBACILLUS RHAMNOSUS GG 1 EACH CAP.SPRINK PO SCH ×2 (08:24→17:50)
[2018-05-12] MEDS: PANTOPRAZOLE 40 MG VIAL IV SCH (08:24)
[2018-05-12] MEDS: ASPIRIN 81 MG TAB.CHEW PO SCH (08:24)
[2018-05-12] MEDS ORDERED: LEVOFLOXACIN 750 MG /D5W 150ML 750 MG in PREMIX 1 EA IV SCH (09:00)
[2018-05-12] MEDS: Potassium Phosphate meq 11 MEQ in IV D5W 100 ML IV SCH ×2 (09:00→11:03)
[2018-05-12] MEDS: VANCOMYCIN 1 GM in IV D5W 250 ML IV SCH ×2 (09:57→10:20)
--- NOTE | 2018-05-12 10:00 | NUR ---
RN NOTES ALEKSANDER TURNED OFF PER DR MENDOZA ORDER , PT ON SEDATION VACATION, CONTINUE TO MONITOR .
--- NOTE | 2018-05-12 10:00 | NUR ---
RN NOTES DR. VARGAS NOTIFIED REGARDING LOW URINE OUTPUT.
[2018-05-12 10:59] LABS: ABG BASE EXCESS -4.4 mmol/L; ABG OXYGEN SATURATION 96.3 % (92.0-98.5); ABG PCO2 28.1 mmHg (35.0-45.0); ABG PH 7.436 (7.350-7.450); ABG PO2 86.8 mmHg (75.0-100.0); AaDO2 94.1 mmHg; COHb 0.9 % (0.5-1.5); MetHb 0.4 % (0.0-1.5); PEEP,BG 5 cm H2O; SITE, ABG Right Radial
[2018-05-12 11:53] LABS: ABG BASE EXCESS -5.5 mmol/L; ABG OXYGEN SATURATION 96.9 % (92.0-98.5); ABG PCO2 26.4 mmHg (35.0-45.0); ABG PH 7.432 (7.350-7.450); ABG PO2 95.1 mmHg (75.0-100.0); AaDO2 87.8 mmHg; COHb 0.6 % (0.5-1.5); MetHb 0.4 % (0.0-1.5); O2Hb 95.9 % (94.0-97.0); PEEP,BG 5 cm H2O; SITE, ABG Right Radial; VENT MODE, BG SIMV4 PS 15
--- NOTE | 2018-05-12 15:20 | NUR ---
RN NOTES R= 34, JR=749/73, HR =111, PT IS RESTLESS AND AGITATED, DR MENDOZA NOTIFED , PT PALCED BACK ON DIPRIVAN AND AC VENT MODE. CONTINUE TO MONITOR.
--- NOTE | 2018-05-12 15:30 | NUR ---
RN NOTES DR CARO NOTIFED REGARDING LOW URINE OUTPUT , NEW ORDER RECEIVED, CONTINUE TO MONITOR .
--- NOTE | 2018-05-12 15:51 | NUR ---
PT PLACED BACK ON AC MODE PER DR. MENDOZA REQUEST. PT BECAME TACHYPNEIC, HYPERTENSIVE AND TACHYCARDIC. PT IS ON SEDATION NOW AND RESTING COMFORTABLY ON AC MODE. Addendum: 05/12/18 at 1557 by JOHNSON GARCIA RT Amended: Links added.
[2018-05-12] MEDS ORDERED: FUROSEMIDE 40 MG/4 ML VIAL IV ONE (16:00)
--- NOTE | 2018-05-12 18:00 | NUR ---
RN NOTES PT SEDATED, ON DIPRIVAN AT 20MCG/KG/MIN , SR UP x3, BED LOCKED AND IN LOWEST POSITION , WILL ENDOSE TO BUSINESS SYSTEMS ADMINISTRATOR NURSE FOR CONTINUITY OF CARE .
--- NOTE | 2018-05-12 19:30 | NUR ---
RETAIL BRANCH MANAGER NOTE PT RECEIVED INTUBATED AND SEDATED. ON MECH VENT WITH SETTINGS WELL TOLERATED AND SATURATING WELL. HOB ELEVATED AND ON ASPIRATION PRECAUTIONS. BREATHING UNLABORED. OG TUBE IN PLACE AND FLUSHING WELL WITH POSITIVE PLACEMENT. MISHEL PICC LINE WITH DIP @ 20MCG/KG/MIN. BLOOD CATHETER IN PLACE AND DRAINING BY GRAVITY. WILL CONTINUE TO MONITOR.
--- NOTE | 2018-05-12 19:59 | NUR ---
PT RECEIVED INTUBATED 7.0 ETT SECURED AT 23CM AT THE LIP. NO RESP DISTRESS. PT IS AWAKE, TOLERATING VENT SETTINGS. BS CL DM. SX'D FOR SML AMT OF THIN WHITE SECRETIONS. VENT ALARMS SET AND AUDIBLE. AMBU BAG AT BEDSIDE. VENT PLUGGED INTO RED OUTLET. WILL CONTINUE TO MONITOR. Addendum: 05/12/18 at 2000 by PEDRO AUGUSTINE RT Amended: Links added.
[2018-05-13] VITALS (41 sets, daily range): BP systolic 105–177; BP diastolic 58–113
[2018-05-13] MEDS ORDERED: BISACODYL SUPP (10 MG) 10 MG/SUPP.RECT SUPP.RECT RC PRN
[2018-05-13] MEDS: AZTREONAM 1 G in IV NS 0.9% 100 ML IV SCH (02:07)
[2018-05-13] MEDS: PROPOFOL 100 ML IV PRN ×3 (03:27→18:38)
[2018-05-13] MEDS ORDERED: LORAZEPAM INJ 2 MG/ML VIAL IV ONE (04:00)
--- NOTE | 2018-05-13 04:00 | NUR ---
INSPECTOR PACKAGER NOTE NOTED PT WITH SBP IN THE 160'S. NOTIFIED UNARMED SECURITY OFFICER WITH ORDERS FOR ATIVAN 1MG IVP X1 DOSE. ORDERS NOTED AND CARRIED OUT. WILL MONITOR.
[2018-05-13 04:51] LABS: EOSINOPHILS % (AUTO) 0.1 % (0.0-6.0); HEMATOCRIT 36 % (33-45); HEMOGLOBIN 12.1 g/dL (11.5-14.8); LYMPHOCYTES # (AUTO) 0.7 /CMM (0.8-4.8); MEAN CORPUSCULAR HGB CONC 33 g/dl (31.0-36.0); MEAN CORPUSCULAR VOLUME 87 fL (82-100); MONOCYTES # (AUTO) 0.9 /CMM (0.1-1.30); MONOCYTES % (AUTO) 6.8 % (2.0-12.0); NEUTROPHILS # (AUTO) 10.9 /CMM (1.8-8.9); NEUTROPHILS % (AUTO) 87.1 % (43.0-81.0); PLATELET COUNT (AUTO) 200 /CMM (150-450); RED BLOOD CELL COUNT(AUTO) 4.17 MIL/uL (4.0-5.2); WHITE BLOOD COUNT (AUTO) 12.5 K/uL (4.3-11.0)
[2018-05-13 05:09] LABS: ALANINE AMINOTRANSFERASE 17 U/L (12-78); ALKALINE PHOSPHATASE 187 U/L (46-116); ASPARTATE AMINOTRANSFERASE 15 U/L (15-37); BILIRUBIN,TOTAL 0.5 mg/dL (0.2-1.0); CALCIUM, SERUM 8.6 mg/dL (8.5-10.1); CARBON DIOXIDE 23 mmol/L (21-32); CHLORIDE 113 mmol/L (98-107); CREATININE 0.9 mg/dL (0.6-1.3); GLUCOSE 106 mg/dL (74-106); PHOSPHORUS 3.1 mg/dL (2.5-4.9); POTASSIUM 3.6 mmol/L (3.5-5.1); SODIUM SERUM 147 mmol/L (136-145); TOTAL PROTEIN, SERUM 5.2 g/dL (6.4-8.2); UREA NITROGEN, BLOOD 29 mg/dL (7-18)
--- NOTE | 2018-05-13 07:10 | NUR ---
RN INITIAL NOTES RECEIVED PT INTUBATED, ON VENT. NO RESPIRATORY DISTRESS NOTED. NO SOB NOTED. DENIES ANY PAIN. PT SEDATED. ON DIPRIVAN AT 25MCG/KG/MIN. WILL TITRATE ACCORDINGLY. MISHEL PICC IN PLACE. OG IN PLACE, CLAMPED. FC IN PLACE. NO HEMATURIA NOTED. PT FOR WEANING TODAY. BLE ELEVATED. WILL MONITOR.
[2018-05-13] MEDS ORDERED: Medication Not On Formulary EA (Levothyroxine Sodium 150 MCG) PO SCH (07:30)
[2018-05-13] MEDS ORDERED: LEVOTHYROXINE SODIUM 150 MCG TABLET PO SCH (07:30)
[2018-05-13] MEDS: FUROSEMIDE 40 MG/4 ML VIAL IV SCH ×3 (08:28→16:34)
[2018-05-13] MEDS: ASPIRIN 81 MG TAB.CHEW PO SCH (08:28)
[2018-05-13] MEDS: LACTOBACILLUS RHAMNOSUS GG 1 EACH CAP.SPRINK PO SCH ×2 (08:28→16:34)
[2018-05-13] MEDS: PANTOPRAZOLE 40 MG VIAL IV SCH (08:28)
[2018-05-13] MEDS: DOCUSATE SODIUM 100 MG CAPSULE PO SCH ×2 (08:28→16:34)
[2018-05-13] MEDS: POTASSIUM CHLORIDE 20 MEQ POWDER PACKET GT SCH ×3 (08:29→11:00)
[2018-05-13] MEDS: LEVOTHYROXINE SODIUM 75 MCG TABLET PO SCH (08:29)
[2018-05-13] MEDS: ENOXAPARIN SODIUM 40 MG/0.4 ML DISP.SYRIN SQ SCH (08:30)
[2018-05-13] MEDS: NITROGLYCERIN 30 GM TUBE TP SCH ×2 (08:59→21:54)
[2018-05-13 10:02] LABS: ABG OXYGEN SATURATION 96.7 % (92.0-98.5); ABG PCO2 27.1 mmHg (35.0-45.0); ABG PH 7.501 (7.350-7.450); ABG PO2 87.5 mmHg (75.0-100.0); AaDO2 94.6 mmHg; COHb 0.8 % (0.5-1.5); MetHb 0.4 % (0.0-1.5); O2Hb 95.5 % (94.0-97.0); PEEP,BG 5 cm H2O; SITE, ABG Right Radial; VT, ABG 450 mL
--- NOTE | 2018-05-13 10:55 | NUR ---
RN NOTES 0850 SEEN AND EXAMINED BY DR MENDOZA. PT OFF SEDATION. PT OPENS EYES ON VERBAL AND TACTILE STIMULI. MOVES TO PAIN. WILL START WEANING TRIALS. PT TACHYCARDIC, 110S AND HYPERTENSIVE, SBP >160. WILL MONITOR. 1050 DR MENDOZA AWARE OF ABG RESULT. PT NOTED INCREASE WORKLOAD OF BREATHING. PT REMAINS TACHYCARDIC. PER MD, PUT PT BACK ON AC MODE. WILL CONTINUE TO MONITOR.
--- NOTE | 2018-05-13 11:30 | NUR ---
RN NOTES SEEN AND EXAMINED BY DR DICKENS. MD AWARE OF LAB VALUES AND CXR RESULT. PT FAILED WEANING TRIALS, BACK ON AC MODE. DIPRIVAN RESTARTED, WILL TITRATE ACCORDINGLY. WILL CLOSELY MONITOR.
[2018-05-13] MEDS ORDERED: MEROPENEM 1 G in IV NS 0.9% 100 ML IV ONE (12:00)
[2018-05-13] MEDS ORDERED: JEVITY 1.2 CAL 1,000 ML BOTTLE GT PRN (18:00)
--- NOTE | 2018-05-13 18:03 | NUR ---
RT END OF THE SHIFT REPORT, RECEIVED PT @0700 INTUBATED ETT # 7.0 SECURED 23CM @ LIP. . PT ON AC MODE, NO RESP DISTRESS. B/S CLEAR/DM. SUX'D FOR SMALL AMT OF THICK WHITE SECRETIONS. VENT ALARMS SET AND AUDIBLE. AMBU BAG AT BEDSIDE. VENT PLUGGED INTO RED OUTLET. HME CHANGED, WILL CONTINUE TO MONITOR, AND REPORT WILL BE GIVEN TO PM SHIFT. @[address] MENDOZA WEANING TRAIL STARTED AND PT. FULLY AWAKE AND FOLLOWING COMMAND @1050 DR. MENDOZA AT THE BEDSIDE AND CHECK THE PT. AND STATUS POST ABG RESULTS AT THE BEDSIDE. RN AT THE BEDSIDE, @1050 PT. PLACED BACK ON AC MODE WITH NOTED SETTINGS. FOR LARA HE ORDERED FOLLOW UP ON WEANING POSSIBLY START EARLIER HE STATED. REPORT WILL BE GIVEN Addendum: 05/13/18 at 1808 by SHWETA DURAN RT Amended: Links added.
--- NOTE | 2018-05-13 18:36 | NUR ---
RN CLOSING NOTES PT FAILED WEANING TRIALS. BACK ON AC MODE. PT SEDATED, ON DIPRIVAN. NO RESPIRATORY DISTRESS NOTED. KEPT HOB ELEVATED. KEPT COMFORTABLE. KEPT CLEAN AND DRY. REPOSITIONED Q2. BLE ELEVATED. WILL ENDORSE FOR CONTINUITY OF CARE.
--- NOTE | 2018-05-13 19:30 | NUR ---
SEEING EYE DOG TRAINER RCD PT W/DX HYPOXIC RESP FAILURE; PT IS SEDATED ON PROPOFOL AT 20 MCG/KG/MIN; PT HAS BL SOFT WRIST RESTRAINTS IN PLACE FOR SAFETY PT HAS MOMENTS OF WAKING UP. SINUS TACH ON MONITOR. BLOOD CATH DRAINING YELLOW URINE. JEVITY AT 20 ML/HR VIA OG TUBE WITH GOAL 50 ML/HR. INCREASE PT TOLERATES.
--- NOTE | 2018-05-13 20:11 | NUR ---
PT RECEIVED INTUBATED 7.0 ETT SECURED AT 23CM AT THE LIP. NO RESP DISTRESS. TOLERATING VENT SETTINGS. BS CL DM. SX'D FOR SML AMT OF THIN WHITE SECRETIONS. VENT ALARMS SET AND AUDIBLE. AMBU BAG AT BEDSIDE. VENT PLUGGED INTO RED OUTLET. WILL CONTINUE TO MONITOR. Addendum: 05/13/18 at 2012 by PEDRO AUGUSTINE RT Amended: Links added.
[2018-05-13] MEDS: MEROPENEM 1 G in IV NS 0.9% 100 ML IV SCH (21:30)
[2018-05-13] MEDS ORDERED: NITROGLYCERIN PACKET 1 GM PACKET ONE (21:44)
[2018-05-14] VITALS (29 sets, daily range): BP systolic 105–154; BP diastolic 48–86
--- NOTE | 2018-05-14 04:00 | NUR ---
ASSISTANT ADMINISTRATOR COMPLETE BED BATH AND ORAL CARE RENDERED. PT HAD SMALL BOWEL MOVEMENT. SKIN REMAINS INTACT. CONTINUE TO MONITOR.
[2018-05-14 04:38] LABS: CALCIUM, SERUM 8.5 mg/dL (8.5-10.1); CARBON DIOXIDE 29 mmol/L (21-32); CHLORIDE 109 mmol/L (98-107); CREATININE 0.9 mg/dL (0.6-1.3); GLUCOSE 119 mg/dL (74-106); POTASSIUM 3.5 mmol/L (3.5-5.1); SODIUM SERUM 148 mmol/L (136-145); UREA NITROGEN, BLOOD 36 mg/dL (7-18)
--- NOTE | 2018-05-14 05:45 | NUR ---
DOCK BOSS PROPOFOL TITRATED OFF PER PROTOCOL FOR 0600 WEANING. CONTINUE TO MONITOR.
--- NOTE | 2018-05-14 06:00 | NUR ---
PLANIMETER OPERATOR PER DR MENDOZA, PT PLACED ON SIMV 4, 30%, +5, PS 15.BY RT. CONTINUE TO MONITOR.
--- NOTE | 2018-05-14 06:09 | NUR ---
PER DR MENDOZA, PLACE PT ON SIMV 4, 30%, +5, PS 15. TITO EDGAR NOTIFIED. Addendum: 05/14/18 at 0611 by PEDRO AUGUSTINE RT Amended: Links added.
--- NOTE | 2018-05-14 07:58 | NUR ---
rn initial notes received pt awake in bed with NAD. currently on simv mode and tolerating well. godfrey soft wrist restraint in place; released and rom done with skin and circulation wnl. pt with both hands edema. OG tube in place with on going TF tolerated well. triple lumen picc line in place with NS infusing @ TKO; secured with intact dressing. RT EJ in place. orozco draining thru gravity. Sinus Tach on the monitor hr on the 100s. hob kept elevated; safety ensured. will monitor
[2018-05-14 08:21] LABS: ABG BASE EXCESS 6.4 mmol/L; ABG OXYGEN SATURATION 97.1 % (92.0-98.5); ABG PCO2 34.2 mmHg (35.0-45.0); ABG PH 7.544 (7.350-7.450); AaDO2 83.7 mmHg; COHb 1.1 % (0.5-1.5); MetHb 0.2 % (0.0-1.5); O2Hb 95.8 % (94.0-97.0); PEEP,BG 5 cm H2O; SITE, ABG Right Radial
[2018-05-14] MEDS ORDERED: DC PROPOFOL WHEN EXTUBATED XX PRN (09:00)
--- NOTE | 2018-05-14 09:05 | NUR ---
RN NOTES PT EXTUBATED AND TOLERATED WELL; ON O2 INH @ 4l/MIN VIA NC. OG REMOVED. POSITIONED FOR COMFORT.
--- NOTE | 2018-05-14 09:05 | NUR ---
RT PER DR MENDOZA PATIENT WAS EXTUBATED AND PLACED ON 3L N/C EMILY WELL.
[2018-05-14] MEDS: PANTOPRAZOLE 40 MG VIAL IV SCH (09:27)
[2018-05-14] MEDS: LEVOTHYROXINE SODIUM 75 MCG TABLET PO SCH ×2 (09:30→15:50)
[2018-05-14] MEDS: LACTOBACILLUS RHAMNOSUS GG 1 EACH CAP.SPRINK PO SCH ×2 (09:30→17:44)
[2018-05-14] MEDS: DOCUSATE SODIUM 100 MG CAPSULE PO SCH ×2 (09:30→17:00)
[2018-05-14] MEDS: ASPIRIN 81 MG TAB.CHEW PO SCH ×2 (09:30→15:50)
[2018-05-14] MEDS: NITROGLYCERIN 30 GM TUBE TP SCH ×2 (09:30→21:44)
[2018-05-14] MEDS: ENOXAPARIN SODIUM 40 MG/0.4 ML DISP.SYRIN SQ SCH (09:34)
--- NOTE | 2018-05-14 09:35 | NUR ---
WOUND CARE CONSULT: PT NOT SEEN YET FOR SKIN ASSESSMENT DUE TO PT JUST EXTUBATED. WILL SEE PT PT CONDITION PERMITS. DISCUSSED SKIN PROTECTION WITH NURSING STAFF.
--- NOTE | 2018-05-14 09:58 | NUR ---
RN NOTES PT AWAKE, NAD. ON O2 INH VIA NC, NO SOB. ALL PO MEDS NOT GIVEN, ENDORSED PT TO TITO HIGHTOWER FOR CONTINUITY OF CARE IN STABLE CONDITION
[2018-05-14] MEDS: MEROPENEM 1 G in IV NS 0.9% 100 ML IV SCH ×2 (12:01→21:44)
--- NOTE | 2018-05-14 12:47 | NUR ---
WOUND CARE CONSULT: PT PRESENTS WITH INTACT SKIN AND SMALL RAISED RED AREA TO SACRUM. RECOMMENDATIONS MADE FOR SKIN PROTECTION. DISCUSSED WITH NURSING STAFF. CURRENT NEGRITA SCORE IS 12. FIRST STEP LOW AIRLOSS MATTRESS ORDERED. WILL SEE PRN. Addendum: 05/14/18 at 1249 by ALIZA HILLMAN WNDNU Amended: Links added.
--- NOTE | 2018-05-14 13:00 | NUR ---
PT PLACED ON [employer] MATRASS, WOUND/SKIN CARE PLAN INITIATED.
--- NOTE | 2018-05-14 14:00 | NUR ---
PT HAD SECOND SMALL DIARRHEA. ASSISTED WITH BED BATH. WILL MONITOR.
--- NOTE | 2018-05-14 18:30 | NUR ---
PT HAS THIRD EPISODE OF DIARRHEA. TRISTIN SHAFFER NOTIFIED. OK TO SEND STOOL CDIF.
--- NOTE | 2018-05-14 19:30 | NUR ---
DIRECTOR OF PEOPLE RCD PT W/DX RESP FAIL; S/P EXTUBATION TODAY. O2 2L NC. NO RESP DIST NOTED. NSR ON MONITOR. DENIES CHEST PAIN. PT IS ALERT AND ORIENTED x2; EDUCATED PT ON USE OF CALL LIGHT PT WAS JUST CALLING OUT FOR HELP. ENCOURAGED PT TO MOVE EXTREMITIES. PROVIDED PT ORAL CARE AND REPOSITIONED PT. BLOOD CATH DRAINING YELLOW URINE. REDNESS/ PURPLE AREA TO BUTTOCKS. APPLIED MEPILEX. MISHEL PICC PATENT W/NS@ TKO; PICC LINE PATENT AND WITH GOOD BLOOD RETURN. CONTINUE TO MONITOR.
[2018-05-15] VITALS (23 sets, daily range): BP systolic 126–163; BP diastolic 69–96
--- NOTE | 2018-05-15 01:03 | NUR ---
SUPERVISOR SOLDER MAKING BLOOD SUGAR 88; NO COVERAGE NEEDED. CONTINUE TO MONITOR.
--- NOTE | 2018-05-15 02:30 | NUR ---
ASSURANCE ASSISTANT PT HAD SMALL SOFT FORMED BOWEL MOVEMENT. PROVIDED SKIN CARE. ENCOURAGED PT TO ASSIST WITH TURNING AND REPOSITIONING.
--- NOTE | 2018-05-15 05:36 | NUR ---
NURSE RESEARCHER BLOOD SUGAR 92; NO COVERAGE NEEDED. CONTINUE TO MONITOR.
--- NOTE | 2018-05-15 06:29 | NUR ---
HANDLE ATTACHER PT REMAINED ON O2 2L NC; NO RESP DIST NOTED. TURNED AND REPOSITIONED PT Q2HRS AND PROVIDED ORAL CARE. PT DENIES PAIN AT THIS TIME.
[2018-05-15] MEDS: LEVOTHYROXINE SODIUM 75 MCG TABLET PO SCH (08:01)
[2018-05-15] MEDS: LACTOBACILLUS RHAMNOSUS GG 1 EACH CAP.SPRINK PO SCH ×2 (08:06→17:28)
[2018-05-15] MEDS: ASPIRIN 81 MG TAB.CHEW PO SCH (08:06)
[2018-05-15] MEDS: NITROGLYCERIN 30 GM TUBE TP SCH ×2 (08:07→21:14)
[2018-05-15] MEDS: MEROPENEM 1 G in IV NS 0.9% 100 ML IV SCH ×2 (08:09→21:09)
[2018-05-15] MEDS: ENOXAPARIN SODIUM 40 MG/0.4 ML DISP.SYRIN SQ SCH (08:13)
[2018-05-15] MEDS: DOCUSATE SODIUM 100 MG CAPSULE PO SCH ×2 (08:14→17:00)
--- NOTE | 2018-05-15 08:34 | NUR ---
ESTER WAS TRAINING ME IN PCS.
--- NOTE | 2018-05-15 08:35 | NUR ---
TRAINING PROVIDED BY ESTER.
--- NOTE | 2018-05-15 09:30 | NUR ---
SWALLOW EVAL. COMPLETED. NEW DIET ORDER PLACED IN [facility]. F/C D/C, CVP D/C. PT ASSISTED WITH FULL BED/BATH AND ORAL HYGIENE.
--- NOTE | 2018-05-15 10:00 | NUR ---
PT UP TO CHAIR WITH ASSISTANCE. PT DID NOT FEEL SHE IS ABLE TO WALK. SAT IN THE JENNIFER FOR 7 MIN.
--- NOTE | 2018-05-15 12:00 | NUR ---
CONSENT FOR CT ANGIO OBTAINED. RADIOLOGY NOTIFIED.
--- NOTE | 2018-05-15 13:00 | NUR ---
PT ASSISTED WITH LUNCH AND MEDICATIONS. INTAKE 90%.
[2018-05-15] MEDS: METOPROLOL TARTRATE 50 MG TABLET PO SCH ×2 (13:09→17:28)
--- NOTE | 2018-05-15 13:36 | NUR ---
HR REMAINS IN 100TH. DISCUSSED WITH DR MENDOZA. OK TO GIVE ONE DOSE OF ATIVAN 0.[address] ANGIO.
--- NOTE | 2018-05-15 13:39 | NUR ---
HR REMAINS ON 100TH. PER JANETTE RN. WILL ATTEMPT CT ANGIO WHEN HR MORE CONTROLLED.
[2018-05-15] MEDS ORDERED: LORAZEPAM 0.5 MG TABLET PO PRN (13:40)
--- NOTE | 2018-05-15 19:30 | NUR ---
RN NOTES ENDORSED FOR CONTINUITY OF CARE. NO ACUTE CHANGES SINCE THE TRANSFER. ALL NURSING NEEDS ATTENDED AND MET. SAFETY MEASURES IN PLACE ALL TIME. CALL LIGHT WITHIN REACH ALL TIME.
--- NOTE | 2018-05-15 19:39 | NUR ---
RN NOTES RECEIVED PATIENT IN BED, ALERT AND ORIENTED X2-3, ABLE TO MAKE NEEDS KNOWN. ON NC AT 2L. NO RESP DIST NOTED.SATING AT 97%, NSR WITH PVC ON MONITOR HR AT 87. DENIES CHEST PAIN. IV ON THE MISHEL PICC LINE 3 LUMEN: SL, INTACT AND PATENT ON FLUSHING. WITH GOOD BLOOD RETURN . PATIENT MADE COMFORTABLE AND WARMTH, ORIENTED TO THE USE OF CALL LIGHT, SAFETY MEASURES OBSERVED AND MAINTAINED, CALL LIGHT PLACED WITHIN REACH, WILL CONTINUE TO MONITOR Addendum: 05/15/18 at 1947 by CARMENZA GONZALES RN TIME:1630
--- NOTE | 2018-05-15 20:00 | NUR ---
TELE/RN OPENING NOTES PATIENT ABLE TO VERBALIZE NEEDS, AWAKE, KEPT WARM, RESPIRATIONS EVEN AND UNLABORED, DENIES PAIN, SKIN WARM TO TOUCH, CALL LIGHTS WITHIN REACH, BED LOCKED, RECEIVED ENDORSEMENT FROM AM RN FOR TAWANNA. WILL MONITOR, WITH MISHEL PICC LINE , PATENT.
[2018-05-15] MEDS: FLUCONAZOLE (100 MG) 100 MG TABLET PO SCH (21:30)
[2018-05-16] VITALS: BP 117/74
[2018-05-16] MEDS: METOPROLOL TARTRATE 50 MG TABLET PO SCH ×6 (01:09→23:01)
--- NOTE | 2018-05-16 03:47 | NUR ---
tele/rn notes PATIENT AWAKEN FROM SLEEP REPORTED NAUSEA AND ZOFRAN IVP GIVEBN, TOLERATED Y PATIETN, WILL CONTINUE TO MONITOR.
--- NOTE | 2018-05-16 06:39 | NUR ---
329-1 TELE/RN NOTES PATIENT, ALERT, ORIENTED, RESPIRATIONS EVEN AND UNLABORED, ABLE TO SLEEP DURING THE NIGHT, PARTICIPATIVE TO CARE, BED LOCKED, CALL LIGHTS WITHIN REACH.
--- NOTE | 2018-05-16 07:47 | NUR ---
TELE/RN OPENING NOTE PATIENT IN BED IN STABLE CONDITION. A/O X 3. NO SIGNS OF ACUTE DISTRESS. NO COMPLAIN OF PAIN OR DISCOMFORT. ON TELE MONITOR NOTED WITH SINUS RHYTHM 80. NPO STATUS AT THIS TIME EXCEPT MEDS SECONDARY TO CTA SCHEDULE. ALL NEEDS ATTENDED TO. CALL LIGHT WITHIN REACH. WILL CONTINUE TO MONITOR TO ENSURE SAFETY.
[2018-05-16 08:01] LABS: ALANINE AMINOTRANSFERASE 30 U/L (12-78); ALBUMIN 2.3 g/dL (3.4-5.0); ALKALINE PHOSPHATASE 95 U/L (46-116); ASPARTATE AMINOTRANSFERASE 29 U/L (15-37); BILIRUBIN,TOTAL 0.4 mg/dL (0.2-1.0); CALCIUM, SERUM 8.2 mg/dL (8.5-10.1); CARBON DIOXIDE 28 mmol/L (21-32); CHLORIDE 105 mmol/L (98-107); CREATININE 0.6 mg/dL (0.6-1.3); GLUCOSE 111 mg/dL (74-106); MAGNESIUM 1.9 mg/dL (1.8-2.4); PHOSPHORUS 2.5 mg/dL (2.5-4.9); POTASSIUM 3.5 mmol/L (3.5-5.1); SODIUM SERUM 141 mmol/L (136-145); TOTAL PROTEIN, SERUM 5.4 g/dL (6.4-8.2); UREA NITROGEN, BLOOD 18 mg/dL (7-18)
[2018-05-16 08:08] LABS: BASOPHILS % (AUTO) 0.2 % (0.0-2.0); EOSINOPHILS % (AUTO) 0.7 % (0.0-6.0); HEMATOCRIT 37 % (33-45); HEMOGLOBIN 12.3 g/dL (11.5-14.8); LYMPHOCYTES # (AUTO) 1.7 /CMM (0.8-4.8); LYMPHOCYTES % (AUTO) 10.3 % (20.0-44.0); MEAN CORPUSCULAR HGB CONC 33 g/dl (31.0-36.0); MEAN CORPUSCULAR VOLUME 87 fL (82-100); MONOCYTES # (AUTO) 2.1 /CMM (0.1-1.30); MONOCYTES % (AUTO) 12.7 % (2.0-12.0); NEUTROPHILS # (AUTO) 12.5 /CMM (1.8-8.9); NEUTROPHILS % (AUTO) 76.1 % (43.0-81.0); PLATELET COUNT (AUTO) 240 /CMM (150-450); RED BLOOD CELL COUNT(AUTO) 4.28 MIL/uL (4.0-5.2); WHITE BLOOD COUNT (AUTO) 16.5 K/uL (4.3-11.0)
[2018-05-16 08:25] VITALS: BP 130/76
[2018-05-16] MEDS: LEVOTHYROXINE SODIUM 75 MCG TABLET PO SCH (09:05)
[2018-05-16] MEDS: MEROPENEM 1 G in IV NS 0.9% 100 ML IV SCH ×2 (09:05→20:07)
[2018-05-16] MEDS: PANTOPRAZOLE 40 MG TABLET.DR PO SCH (09:05)
[2018-05-16] MEDS: DOCUSATE SODIUM 100 MG CAPSULE PO SCH ×2 (09:05→17:12)
[2018-05-16] MEDS: ASPIRIN 81 MG TAB.CHEW PO SCH (09:05)
[2018-05-16] MEDS: LACTOBACILLUS RHAMNOSUS GG 1 EACH CAP.SPRINK PO SCH ×2 (09:05→17:12)
[2018-05-16] MEDS: FLUCONAZOLE (100 MG) 100 MG TABLET PO SCH (09:05)
[2018-05-16] MEDS: NITROGLYCERIN 30 GM TUBE TP SCH ×2 (09:06→20:25)
[2018-05-16] MEDS: ENOXAPARIN SODIUM 40 MG/0.4 ML DISP.SYRIN SQ SCH (09:07)
[2018-05-16] MEDS ORDERED: METOPROLOL TARTRATE INJ 5 MG/5 ML AMPUL ONE ×2 (09:11→10:01)
[2018-05-16] MEDS ORDERED: NITROGLYCERIN 0.4 MG/TAB BOTTLE SL ONE (10:00)
[2018-05-16] MEDS ORDERED: METOPROLOL TARTRATE INJ 5 MG/5 ML AMPUL IVP ONE (10:00)
[2018-05-16] MEDS ORDERED: IV NS 0.9% 500 ML IV ONE (10:00)
[2018-05-16] MEDS ORDERED: CT SWABBABLE VALVE TRANS SET 1 EA INFUS.SET MC ONE (10:06)
[2018-05-16] MEDS ORDERED: IOHEXOL-350 100 ML VIAL IV ONE (10:06)
[2018-05-16] MEDS ORDERED: IV NS 0.9% 250 ML IV ONE (10:06)
[2018-05-16 10:29] LABS: BAND % (MANUAL) 3 % (0.0-5.0); LYMPHOCYTES % (MANUAL) 2 % (16-48); MONOCYTES % (MANUAL) 18 % (0-11.0); MYELOCYTES % 2 % (0-0); NEUTROPHILS % (MANUAL) 75 (42-76)
--- NOTE | 2018-05-16 14:45 | NUR ---
MS/RN SEEN BY DR BLANCO'S RESIDENTIAL REAL ESTATE SALES MANAGER DEENA AND ASSESSED PATIENT'S SACRUM DISCOLORATION NOTED WITH LITTLE FLUID FILLED. PER RESIDENTIAL REAL ESTATE SALES MANAGER DEENA COULD BE POSSIBLE SHINGLES AND STARTED ON VALTREX.PATIENT NOTIFIED.
[2018-05-16] MEDS: VALACYCLOVIR HCL 500 MG TABLET PO SCH ×2 (16:54→23:01)
[2018-05-16 17:33] VITALS: BP 102/54
--- NOTE | 2018-05-16 18:45 | NUR ---
MS/RN CLOSING NOTE PATIENT IN BED IN STABLE CONDITION. A/O X 3. NO SIGNS OF ACUTE DISTRESS. NO COMPLAIN OF PAIN OR DISCOMFORT. ON CONTACT ISOLATION SECONDARY TO SHINGLES. SHINGLES CLUSTERED BLISTERS ON SACRUM SITE COVERED WITH DRY GAUZE PER ORDER. ALL NEEDS ATTENDED TO AT THIS TIME. CALL LIGHT WITHIN REACH. WILL ENDORSE TO NEXT SHIFT FOR CONTINUITY OF CARE.
--- NOTE | 2018-05-16 19:05 | NUR ---
RN INITIAL NOTES: RECEIVED REPORT FROM LUDWIG FRANCIS. PT IN BED, AWAKE, A/O X3 ON RA, REFUSING OXYGEN STATED SHE'S BREATHING GOOD, DENIES ANY SOB, CHEST PAIN. PT HAS RIGTH EJ PATENT AND FLUSHING WELL, ON HL. NOTED TO HAVE MISHEL PICC LINE WITH TLC, 2PORTS NOTED WITH GOOD BLOOD RETURN, ABLE TO FLUSH WITH SALINE, PLACED ON HL, THE OTHER LUMEN WAS COVERED WITH VEGETABLE GROWER, BUT UNABLE TO CHECK PATENCY BECAUSE ONCE VEGETABLE GROWER IS REMOVE THERE WILL BE NO PORT TO HOLD IT. PT ON ISOLATION FOR SHINGLES. DISCUSSED PLAN OF CARE FOR TONIGHT, PT AGREE. NEEDS REINFORCEMENT. SAFETY PRECAUTIONS FOR FALL INITIATED, CALL LIGHT IN REACH, WILL CONTINUE MONITORING PT.
[2018-05-16 20:00] VITALS: BP 134/76
[2018-05-16 20:24] VITALS: BP 134/76
--- NOTE | 2018-05-16 20:25 | NUR ---
TITO NOTES: NITRO BID PATCH APPLIED ONTO LEFT CW.
[2018-05-16 23:00] VITALS: BP 119/58
--- NOTE | 2018-05-16 23:00 | NUR ---
RN NOTES: PER WAREHOUSE CHECKER, PT HAD 2 BM TONIGHT, 1ST ONE SOFT AND THE SECOND ONE FOR 2235 IS LOOSE, WILL MONITOR PT.
[2018-05-16] MEDS: Z GUARD REMEDY 2 OZ OINT TP PRN (23:02)
--- NOTE | 2018-05-16 23:15 | NUR ---
RN NOTES: DUE MEDS ADMINISTERED, EXPLAIN MEDICATION ACTION AND SIDE EFFECT.
--- NOTE | 2018-05-16 23:48 | NUR ---
RN NOTES: SEEN PT SLEEPING AT THIS TIME, APPEARS CALM AND COMFORTABLE, NO FACIAL GRIMACE NOTED, RESPIRATION EVEN AND UNLABORED.
--- NOTE | 2018-05-17 04:00 | NUR ---
REFUSED TO BE REPOSITION: PT REFUSED TO BE TURN AT THIS TIME STATED SHE WILL GET UP WITH PT IN AM, EDUCATION PROVIDED TO THE PT
--- NOTE | 2018-05-17 06:00 | NUR ---
REFUSAL FOR REPOSITION: PT REFUSED AGAIN TO BE REPOSITION AT THIS TIME, EDUCATION PROVIDED TO THE PT
[2018-05-17 06:14] VITALS: BP 151/82
[2018-05-17] MEDS: METOPROLOL TARTRATE 50 MG TABLET PO SCH (06:14)
--- NOTE | 2018-05-17 06:16 | NUR ---
RN NOTES: PT HAD 2 LOOSE BM FROM 0030MN (1ST) AND 0330AM (2ND), PER PROTOCOL, WILL COLLECT STOOL FOR CDIFF AFTER THE 3RD LOOSE STOOL
--- NOTE | 2018-05-17 06:50 | NUR ---
rn closing notes: pt remains on ra denies any sob, ble kept offloaded on pillows, refused turning and repositioning stating she will get up in am anyway, education provided to the pt. rachelle picc line remains patent and flushing well, on hl. vs remains stable, needs attended. safety precautions for fall initiated, call light in reach, will endorse to day rn for continuity of care.
[2018-05-17 07:21] LABS: BASOPHILS % (AUTO) 0.2 % (0.0-2.0); EOSINOPHILS % (AUTO) 1.3 % (0.0-6.0); HEMATOCRIT 36 % (33-45); HEMOGLOBIN 11.9 g/dL (11.5-14.8); LYMPHOCYTES # (AUTO) 1.6 /CMM (0.8-4.8); LYMPHOCYTES % (AUTO) 11.7 % (20.0-44.0); MEAN CORPUSCULAR HGB CONC 33 g/dl (31.0-36.0); MEAN CORPUSCULAR VOLUME 87 fL (82-100); MONOCYTES # (AUTO) 2.3 /CMM (0.1-1.30); MONOCYTES % (AUTO) 17.2 % (2.0-12.0); NEUTROPHILS # (AUTO) 9.4 /CMM (1.8-8.9); NEUTROPHILS % (AUTO) 69.6 % (43.0-81.0); PLATELET COUNT (AUTO) 250 /CMM (150-450); RED BLOOD CELL COUNT(AUTO) 4.15 MIL/uL (4.0-5.2); WHITE BLOOD COUNT (AUTO) 13.6 K/uL (4.3-11.0)
[2018-05-17 07:27] LABS: CALCIUM, SERUM 8.3 mg/dL (8.5-10.1); CARBON DIOXIDE 28 mmol/L (21-32); CHLORIDE 105 mmol/L (98-107); CREATININE 0.7 mg/dL (0.6-1.3); GLUCOSE 107 mg/dL (74-106); MAGNESIUM 1.8 mg/dL (1.8-2.4); POTASSIUM 3.3 mmol/L (3.5-5.1); SODIUM SERUM 139 mmol/L (136-145); UREA NITROGEN, BLOOD 17 mg/dL (7-18)
--- NOTE | 2018-05-17 07:50 | NUR ---
MS RN NOTES PATIENT RECEIVED RESTING INSIDE ROOM. AWAKE, ALERT AND ORIENTED, VERBALLY RESPONSIVE AND RESPONDS TO VERBAL AND TACTILE STIMULI. NO CHANGES IN LOC NOTED AT THIS TIME. NO ACUTE DISTRESS NOTED. MAINTAINED ISOLATION PRECAUTIONS. WILL CONTINUE TO MONITOR. BED LOCKED AND IN LOW POSITION. BILATERAL UPPER SIDE RAILS UP AND LOCKED. CALL LIGHT WITHIN EASY REACH
[2018-05-17 08:00] VITALS: BP 141/78
[2018-05-17] MEDS: POTASSIUM CHLORIDE 20 MEQ TAB.PRT.SR PO SCH ×2 (08:54→09:09)
[2018-05-17] MEDS: DOCUSATE SODIUM 100 MG CAPSULE PO SCH (09:00)
[2018-05-17] MEDS: VALACYCLOVIR HCL 500 MG TABLET PO SCH (09:08)
[2018-05-17] MEDS: FLUCONAZOLE (100 MG) 100 MG TABLET PO SCH (09:09)
[2018-05-17] MEDS: LEVOTHYROXINE SODIUM 75 MCG TABLET PO SCH (09:09)
[2018-05-17] MEDS: PANTOPRAZOLE 40 MG TABLET.DR PO SCH (09:09)
[2018-05-17] MEDS: LACTOBACILLUS RHAMNOSUS GG 1 EACH CAP.SPRINK PO SCH (09:09)
[2018-05-17] MEDS: ASPIRIN 81 MG TAB.CHEW PO SCH (09:09)
[2018-05-17] MEDS: ENOXAPARIN SODIUM 40 MG/0.4 ML DISP.SYRIN SQ SCH (09:11)
[2018-05-17 09:12] VITALS: BP 141/78
[2018-05-17] MEDS: NITROGLYCERIN 30 GM TUBE TP SCH (09:12)
[2018-05-17] MEDS: MEROPENEM 1 G in IV NS 0.9% 100 ML IV SCH (09:14)
[2018-05-17] MEDS ORDERED: LACT1CAP72 PO (11:26)
[2018-05-17] MEDS ORDERED: FLUC100T8 PO (11:26)
[2018-05-17] MEDS ORDERED: METO50TA16 PO (11:27)
[2018-05-17] MEDS ORDERED: VALA500T PO (11:27)
--- NOTE | 2018-05-17 13:16 | NUR ---
MS RN NOTES PATIENT FOR DISCHARGE HOME TODAY. DISCHARGE INSTRUCTIONS AND EDUCATION GIVEN AND PATIENT VERBALIZED UNDERSTANDING. WRITTEN PRESCRIPTIONS GIVEN TO PATIENT, MEDICATIONS EXPLAINED AND VERBALIZED UNDERSTANDING. ALL BELONGINGS TAKEN HOME BY COUSIN PER PATIENT. IV AND PICCLINE REMOVED WITH MINIMAL BLEEDING NOTED, PRESSURE DRESSING PLACED ON SITE. PATIENT BREATHING EVEN AND UNLABORED. NO NEW SKIN BREAKDOWN NOTED. DENIES ANY PAIN OR DISCOMFORT. PATIENT LEFT UNIT VIA WHEELCHAIR IN STABLE CONDITION. ACCOMPANIED BY NURSING STAFF TO PARKING LOT. LEFT HOSPITAL PREMISES VIA PRIVATE CAR. MADE AWARE OF DISCHARGE.
== END 2018-05-17 13:15 | disposition home health service (06) | DRG 871 ==
LOC: ER 10:15 → ICU 13:47 → TELE 05-15 16:34 → MED 05-16 10:31
PROVIDERS: ADMIT Internal Medicine; ATTEND Student in an Organized Health Care Education/Training Program
PROC: 5A1945Z Respiratory Ventilation, 24-96 Consecutive Hours (ICD-10-PCS; principal; 2018-05-10)
PROC: 0BH18EZ Insertion of Endotracheal Airway into Trachea, Via Natural or Artificial Opening Endoscopic (ICD-10-PCS; 2018-05-10)
PROC: 02HV33Z Insertion of Infusion Device into Superior Vena Cava, Percutaneous Approach (ICD-10-PCS; 2018-05-11)
PROC: B548ZZA Ultrasonography of Superior Vena Cava, Guidance (ICD-10-PCS; 2018-05-11)
DX: A41.9 Sepsis, unspecified organism (principal); J96.01 Acute respiratory failure with hypoxia; I21.A1 Myocardial infarction type 2; J15.9 Unspecified bacterial pneumonia; R65.21 Severe sepsis with septic shock; R57.1 Hypovolemic shock; G93.1 Anoxic brain damage, not elsewhere classified; E87.0 Hyperosmolality and hypernatremia; E87.2 Acidosis; J90 Pleural effusion, not elsewhere classified; J81.1 Chronic pulmonary edema; E83.42 Hypomagnesemia; E78.5 Hyperlipidemia, unspecified; E03.9 Hypothyroidism, unspecified; Z96.653 Presence of artificial knee joint, bilateral; Z96.643 Presence of artificial hip joint, bilateral; Z79.899 Other long term (current) drug therapy; Z79.82 Long term (current) use of aspirin; M19.90 Unspecified osteoarthritis, unspecified site; Z88.6 Allergy status to analgesic agent; Z88.1 Allergy status to other antibiotic agents; Z88.5 Allergy status to narcotic agent; Z88.0 Allergy status to penicillin; E87.6 Hypokalemia; Z98.82 Breast implant status; K52.9 Noninfective gastroenteritis and colitis, unspecified; I10 Essential (primary) hypertension; M51.36 Other intervertebral disc degeneration, lumbar region; B02.9 Zoster without complications; B37.3 Candidiasis of vulva and vagina
CPT/HCPCS: 31720; 36415; 36569; 36600; 71045-TC; 75574; 80048-TC; 80053-TC; 80061-TC; 80076-TC; 80202-TC; 81000-TC; 82533; 82803-TC; 82962-TC; 83605-TC; 83690-TC; 83735-TC; 83880; 84100-TC; 84484-TC; 85025-TC; 87040-TC; 87070-TC; 87081-TC; 87400; 92526; 92611-TC; 93307-TC; 94002-TC; 94003-TC; 94760-TC; 94799-TC; 97116-TC; 97530-TC; A4216; C1751; C9113; G0378; J0330; J1650; J1720; J1940; J1956; J2060; J2185; J2370; J2405; J2765; J3370; J3475; J3490; J7030; J7040; J7050; J7060; J7070; L3763; Q9967